=== PATIENT | female | born 1975 | race Caucasian/White ===

== ENCOUNTER 2025-01-24 19:56 | Emergency (ER) | payer OTHER, SELFPAY ==
--- OUTSIDE RECORDS SUMMARY | 2024-01-11 09:30 | XMS_ITS ---
Author Organization [facility] Address [address] [place] [address] Care Team Providers Care Environmental Science Program Director Name Role Phone Litzy Obrien Unavailable [phone] REASON FOR VISIT 6m Encounters Encounter Location Date Provider Diagnosis [facility] [address] [facility] [address] [place] [address] 01/11/2024 Litzy Obrien Plan Of Treatment No Information Progress Notes * Rosy PENNYDOB: [birth year] (49 yo F)Acc No.[id number]:01/11/2024 Progress Notes Patient: Rosy GILES Provider: Rae Obrien MD :1975 A ge:48 Y S ex:Female Date:01/11/2024 Address:[address] [place], [place] [id number] Subjective: * Chief Complaints: * 1 . 6m. * Medical History: Objective: * Vitals: Assessment: Plan: * Treatment: * Billing Information: * Visit Code: * Procedure Codes: * The named appointment provid er may or may not be the originator of this progress note, and it is not deemed complete until electronically signed by the appointment provider. Sign off status: Pending * Provider: Rae Obrien MD Date: 01/11/2024 Generated for Printi ng/Faradahg/eTransmitting on: 01/24/2025 08:07 PM CDT
[2025-01-24 19:59] VITALS: BP 123/88; PULSE 89; RESP 18; TEMP 36.6; O2SAT 97; BMI 40.7
--- NOTE | 2025-01-24 20:02 | ECG_ITS ---
[facility]24 Pat Name: Rosy Hoffman Department: Room: Gender: Female Ski Molder: : 1975 Requested By: Ivonne Clarke Order Number: [id number] Reading MD: Measurements Intervals Bertrand Rate: 85 P: 26 TX: 161 QRS: 19 QRSD: 89 T: 11 QT: 379 QTc: 452 Interpretive Statements SINUS RHYTHM No previous ECG available for comparison [email or web address]
--- OUTSIDE RECORDS SUMMARY | 2025-01-24 20:08 | XMS_ITS | Clinical Summary ---
Author Organization [facility] Address [address] [place] [address] Care Team Providers Care Wellness Instructor Name Role Phone Douglas Guadarrama MD Unavailable [phone] Social History Tobacco Use Types Packs/Day Years Used Date Smoking Tobacco: Never Assessed Comments Unknown Sex and Gender Information Value Date Recorded Sex Assigned at Not on file Legal Sex Female 10:41 AM CDT Gender Identity Not on file Sexual Orientation Not on file Plan of Treatment Health Maintenance Due Date Last Done Comments COLONOSCOPY 1976 CT Colonography 1975 Colorectal Cancer Screening 1975 FIT DNA 1975 FIT 1975 Hepatitis C Screening 1975 Mammogram 1975 SIGMOIDOSCOPY 1975 Anxiety Screening 1984 HIV Screening 1991 Depression Screening 1994 Hepatitis B Vaccine (1 of 3 - 19+ 3-dose series) 1995 TDAP/DTaP/TD Vaccines (1 - Tdap) 1995 Pap Smear 1997 Cervical Cancer Screening (30-65) 2006 HPV/Cotest 2006 Lipid Panel 2016 COVID-19 Vaccine ( - 2023-2 5 season) 2024 Influenza Series (#1) 2025 Meningococcal B Vaccine Aged Out No l onger eligible based on patient's age to complete this topic Pneumococcal Vaccine 0-50 years Aged Out No longer eligible based on patient's age to complete this topic Insurance [place]PCP REFERRAL REQ Care Teams Wellness Instructor Relationship Specialty Start Date End Date Douglas Guadarrama MD [address] [place] [address] [address] [place] [address] PCP - Medicaid 04/13/18
--- OUTSIDE RECORDS SUMMARY | 2025-01-24 20:08 | XMS_ITS | Encounter Summary ---
Author Organization [facility] Address [address] [place] [address] Care Team Providers Care Senior Research Fellow Name Role Phone Douglas Guadarrama MD Unavailable [phone] Encounter Details Date Type Department Care Team ([facility] st Contact Info) Description 03/15/2018 Outside Records [facility] [address] [facility] [place] [address] Interface, Provider Social History Tobacco Use Types Packs/Day Years Used Date Smoking Tobacco: Never Assessed Comments Unknown Sex and Gender Information Value Date Recorded Sex Assigned at Not on file Legal Sex Female 10:41 AM CDT Gender Identity Not on file Sexual Orientation Not on file documented as of this encounter Plan of Treatment Not on file documented as of this encounter Visit Diagnoses Not on filedocumented in this encounter Care Teams Senior Research Fellow Relationship Specialty Start Date End Date Douglas [facility]arrama [facility] [address] [place] [address] PCP - Medicaid 04/13/18 documented as of this encounter
--- OUTSIDE RECORDS SUMMARY | 2025-01-24 20:08 | XMS_ITS | Patient Health Record ---
Author Organization [facility] Address [address] [place] [address] Care Team Providers Care Legal Administrative Secretary Name Role Phone Litzy Obrien Unavailable [phone] Allergies No Known Allergies Reason For Referral No Information Medications Medication SIG (Take, Route, Frequency, Duration) Notes Start Date End Date Status Lyrica 150 mg 1 cap(s) orally 3 times daily; Duration: 90 days Hold medication in case of drowsiness 10/27/2023 Active rosuvastatin 20 mg 1 tab(s) orally once a day Active loratadine 5 mg 1 tab(s) orally once a day Active pregabalin 150 mg 1 cap(s) orally 3 times a day; Duration: 90 days 05/01/2024 Active omeprazole 20 mg 1 cap(s) orally once a day Active Pennsaid 2% as directed applied topically 2 times a day Active D3 2000 50 mcg 1 cap(s) orally once a day; Duration: 90 days 04/03/2024 Active predniSONE 5 mg 1 tab(s) orally 1 tablet after each meal for 2 weeks; Duration: 14 days Bridge treatment for 2 weeks then call office to rate response 04/03/2024 Active Doxepin Hydrochloride 25 mg 1 cap(s) orally 1 tablet 1 hour before bedtime; Duration: 90 days Call office in 1 month to rate response/tolerance 04/03/2024 Active Aveeno Anti-Itch 3%-1% 1 camden applied topically 3 times a day; Duration: 30 days Active DULoxetine 60 mg 1 cap(s) orally once a day in the morning; Duration: 90 days Active Social History Tobacco Use: Social History Observation Description Date Details (start date - stop date) Former Smoker NA - NA Tobacco Use: Question Answer Notes Smoking Status former smoker Problems Problem Type SNOMED Code ICD Code Onset Dates Problem Status W/U Status Risk Notes Problem Fibromyalgia syndrome (M79.7) Active confirmed Vital Signs Heart Rate 86 /min 04/03/2024 Temperature 98.1 degrees Fahrenheit 04/03/2024 Blood pressure diastolic 86 mm Hg 04/03/2024 Height 63 in 04/03/2024 Blood pressure systolic 107 mm Hg 04/03/2024 Weight 215 lbs 04/03/2024 BMI 38.08 kg/m2 04/03/2024 Encounters Encounter Location Date Provider Diagnosis [facility] [address] [place] [address] 04/03/2024 Litzy Valenciar Fibromyalgia syndrom e M79.7 [facility] [address] [place] [address] 10/01/2024 Litzy Valenciar [facility] [address] [place] [address] 04/30/2024 Litzy Valenciar Fibromyalgia syndrom e M79.7 [facility] [address] [place] [address] 05/02/2024 Litzy Obrien Assessments Encounter Date Diagnosis (ICD Code) Assessment Notes Treatment Notes Treatment Clinical Notes Section Notes 04/03/2024 Fibromyalgia syndrome (ICD-10 - M79.7) Due to the fair response to intolerance to Cymbalta and Lyrica as a will be refilled at same current dose of 60 mg of duloxetine in the morning and 150 mg 3 times daily for pregabalin. For his nonrestorative sleep I am going to add doxepin 25 mg 1 hour before bedtime for 1 months and patient will call office to rate response so dose can be adjusted. Patient will discontinue Lunesta due to nightmares. Due to the reported pain and swelling in both hands I am going to try pretreatment prednisone at 5 mg after each meal for 2 weeks then patient will call office to rate response. Aquatic aerobics 3 sessions per week. Vitamin D3 2000 unit every day. 04/30/2024 Fibromyalgia syndrome (ICD-10 - M79.7) Plan Of Treatment No Information Insurance Providers Payer Name Payer Address Payer Phone Subscriber Number Group Number Insured Name Patient Relationship to Insured Coverage Start Date Coverage End Date [address] [place], [place] [phone] [id number] Rosy Hoffman Self - patient is the insured 3 Medical (General) History Medical History History ICD Code gall bladder removed partial hysterectomy hand surgery elbow surgery
--- OUTSIDE RECORDS SUMMARY | 2025-01-24 20:08 | XMS_ITS | Encounter Summary ---
Author Organization [facility] Address [address] [facility] [facility] [place] [address] Care Team Providers Care Supervisor Tubing Name Role Phone Douglas Guadarrama MD Unavailable [phone] Encounter Details Date Type Department Care Team ([facility] st Contact Info) Description 03/15/2018 Outside Records [facility] [address] [facility] [place] [address] Interface, Provider Social History Tobacco Use Types [...] on filedocumented in this encounter Care Teams Supervisor Tubing Relationship Specialty Start Date End Date Douglas Guadarrama MD [facility] [address] [place] [address] PCP - Medicaid 04/13/18 documented as of this encounter
--- OUTSIDE RECORDS SUMMARY | 2025-01-24 20:08 | XMS_ITS | Encounter Summary ---
Author Organization [facility] Address [address] [place] [address] Care Team Providers Care Pilot Boat Operator Name Role Phone Douglas Guadarrama MD Unavailable [phone] Encounter Details Date Type Department Care Team ([facility] st Contact Info) Description 03/15/2018 Outside Records [facility] [address] [facility] [place] [address] Interface, Provider Social History Tobacco Use Types [...] on filedocumented in this encounter Care Teams Pilot Boat Operator Relationship Specialty Start Date End Date Douglas Guadarrama MD [facility] [address] [place] [address] PCP - Medicaid 04/13/18 documented as of this encounter
--- OUTSIDE RECORDS SUMMARY | 2025-01-24 20:08 | XMS_ITS | Encounter Summary ---
Author Organization [facility] Address [address] [place] [address] Care Team Providers Care Mechanical Product Engineer Name Role Phone Douglas Guadarrama MD Unavailable [phone] Encounter Details Date Type Department Care Team ([facility] st Contact Info) Description 03/15/2018 Outside Records [facility] [address] [facility] [place] [address] Interface, Provider Social History Tobacco Use Types [...] on filedocumented in this encounter Care Teams Mechanical Product Engineer Relationship Specialty Start Date End Date Douglas [facility]arrama [facility] [address] [place] [address] PCP - Medicaid 04/13/18 documented as of this encounter
--- OUTSIDE RECORDS SUMMARY | 2025-01-24 20:08 | XMS_ITS | Encounter Summary ---
Author Organization [facility] Address [address] [facility] [place] [address] Care Team Providers Care Wedding Florist Name Role Phone Douglas Guadarrama MD Unavailable [phone] Encounter Details Date Type Department Care Team ([facility] st Contact Info) Description 03/15/2018 Outside Records [facility] [address] [facility] [place] [address] Interface, Provider Social History Tobacco Use Types [...] on filedocumented in this encounter Care Teams Wedding Florist Relationship Specialty Start Date End Date Douglas Guadarrama MD [facility] [address] [place] [address] PCP - Medicaid 04/13/18 documented as of this encounter
--- OUTSIDE RECORDS SUMMARY | 2025-01-24 20:08 | XMS_ITS | Encounter Summary ---
Author Organization [facility] Address [address] [place] [address] Care Team Providers Care Learning Solutions Specialist Name Role Phone Douglas Guadarrama MD Unavailable [phone] Encounter Details Date Type Department Care Team ([facility] st Contact Info) Description 03/15/2018 Outside Records [facility] [address] [facility] [place] [address] Interface, Provider Social History Tobacco Use Types [...] on filedocumented in this encounter Care Teams Learning Solutions Specialist Relationship Specialty Start Date End Date Douglas [facility]arrama [facility] [address] [place] [address] PCP - Medicaid 04/13/18 documented as of this encounter
--- OUTSIDE RECORDS SUMMARY | 2025-01-24 20:08 | XMS_ITS | Patient Health Record ---
Author Organization [facility] Address [address] [place] [address] Care Team Providers Care Table Games Floor Supervisor Name Role Phone Benjy Juarez DO Primary Care Provider Unavailabl e Arthur Marshall Unavailable [phone] AR[address] [place] Unavailable Unavailable Allergies No Known Allergies Reason For Referral No Information Medications Medication SIG (Take, Route, Frequency, Duration) Notes Start Date End Date Status Pregabalin 75 MG 1 capsule Orally Thr ee times a day Active Citalopram Hydrobromide 20 MG 1 tablet Orally Once a day Active Fluticasone Propionate 50 MCG/ACT 1 spray in each nostril Nasally Once a day Active Rosuvastatin Calcium 10 MG 1 tablet Oral ly Once a day Active tiZANidine HCl 4 MG Take 1 tablet by porsha th three times daily as needed for 30 Active Meloxicam 15 MG Take 1 tablet by porsha th once daily for 30 Active Immunizations Vaccine Route Administration Date Status Comme nts COVID-19 Vaccine (Moderna) Dose #1 Unknown 03/06/2021 A dministered COVID-19 Vaccine (Moderna) Dose #2 Unknown 04/16/2021 A dministered Influenza (whole), CPT 24102 Inactive Unknown 08/08/2017 Administered Influenza (whole), CPT 21718 Inactive Unknown 08/08/2018 Administered Social History Tobacco Use: Social History Observation Description Date Details (start date - stop date) Never Smoker NA - NA xTobacco Use/Smoking Question Answer Notes Are you a nonsmoker PHQ-9 Question Answer Notes Little interest or pleasure in doing things More than half the days Feeling down, depressed, or hopeless Several day s Trouble falling or staying asleep, or sleeping t oo much Nearly every day Feeling tired or having little energy Nearly fatuma ry day Poor appetite or overeating More than half the d ays Feeling bad about yourself, or that you are a failure, or have let yourself or your family down Nearly every day Trouble concentrating on thi ngs, such as reading the newspaper or watching television Not at all Moving or speaking so slowly that other people could have noticed. Or the opposite ? being so fidgety or restless that you have been moving around a lot more than usual Not at all Thoughts that you would be b sriram off , or of hurting yourself in some way Not at all Total Score 14 Interpretation Moderate Depression Problems Problem Type SNOMED Code ICD Code Onset Dates Problem Status W/U Status Risk Notes Problem [id number] Decreased visual acuity (H54.7) Active confirmed Plan Of Treatment Pending Test Test Name Order Date MRI Lumbar Spine w/o [id number] 10/29/19 22 Insurance Providers Payer Name Payer Address Payer Phone Subscriber Number Group Number Insured Name Patient Relationship to Insured Coverage Start Date Coverage End Date Mina [address] [facility] [place] [address] [id number] Rosy Hoffman Self - patient is the insured 2 [employer] - Work Comp [id number] [address] [id number] Rosy Hoffman Self - patient is the insured Medical (General) History Medical History History ICD Code Problem:Anxiety (finding) , Status :: Ac tive Problem:Depressive disorder (disorder) , Status :: Active Problem:Hip pain (finding) , Status :: A ctive Problem:Microcytic anemia (disorder) , S tatus :: Active Problem:Mitral valve disorder (disorder) , Status :: Active Problem:Mixed hyperlipidemia (disorder) , Status :: Active Problem:Obesity (disorder) , Status :: A ctive Problem:Tobacco user (finding) , Status :: Active Problem:Anemia due to blood loss (disord er) , Status :: Active Problem:Anxiety (finding) , Status :: Ac tive Problem:Chronic depression (disorder) , Status :: Active Problem:Fibromyalgia (disorder) , Status :: Active Problem:Malabsorption - iron (disorder) , Status :: Active Problem:Obesity (disorder) , Status :: A ctive Problem:Tobacco user (finding) , Status :: Active Surgical History Surgery Date(Month/Year) hands and elbows 2020 hysterectomy 2020 gallbladder 2010 c section x 4 Hospitalization History Reason Date(Month/Year) see surgical hx
--- NOTE | 2025-01-24 20:24 | XRR_ITS ---
PROCEDURE INFORMATION: Exam: XR Chest Exam date and time: 01/24/2025 8:26 PM Age: 49 years old Clinical indication: Pain; Chest pressure; Additional info: Chest pain TECHNIQUE: Imaging protocol: Radiologic exam of the chest. Views: 1 view. COMPARISON: No relevant prior studies available. FINDINGS: Lungs: Unremarkable. No consolidation. Pleural spaces: Unremarkable. No pleural effusion. No pneumothorax. Heart/Mediastinum: Unremarkable. No cardiomegaly. Bones/joints: Unremarkable. XR/XR chest 1V portable 85029 IMPRESSION: No acute findings.
--- NOTE | 2025-01-24 20:43 | ED_ITS ---
HPI - Chest Pain 2 General: Chief Complaint: Chest Pain Stated Complaint: LUDIN baron weeks SOB tired Time Seen by Provider: 01/24/25 20:11 History of Present Illness: This patient is a 49 year old presenting with chest pain that has been ongoing for about 3 weeks. She says that initially it would be a sharp pain that was followed by feeling like her heart was racing. Then about a week ago the heart racing sensation became more constant. She was her PCP yesterday and was told to come to the ED but decided not to come then. Today she has not had the heart racing sensation but has had constant sharp chest pain. She has had some episodes of sweating and feeling flushed - hard to say if they occur in association with the chest pain and racing heart or not. She denies any pattern to her symptoms - they occur at rest and with activity, with sitting or laying, and no association with eating. She reports a history of two leaky valves after the of her daughter in 2000, and was also told at that time that she had an enlarged heart. 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 She is on medication and is compliant. She recently started a new injection medication for the eczema. She denies family history of CAD and is not a smoker. She did smoke for a short time many years ago. No alcohol or drug use. Related Data Allergies Allergy/AdvReac Type Severity Reaction Status Date / Time No Known Allergies Allergy Verified 01/24/25 20:07 Physical Exam 2 Const: COMMON NORMALS: no acute distress, patient oriented x3, no limitations and alert GENERAL APPEARANCE: cooperative and comfortable HENMT: HEAD & SCALP: normal to inspection FACE & SINUS: normal facial exam Eye: GENERAL EYE: appearance normal, both eyes and all related structures Neck/C-Spine: COMMON NORMALS: supple, no meningeal signs and no JVD Chest: COMMONS NORMALS: normal inspection of the chest Resp: COMMON NORMALS: normal respiratory effort, No use of accessory muscles and clear to auscultation bilaterally AUSCULTATION: clear to auscultation bilaterally Cardio: COMMON NORMALS: no JVD, regular rate, regular rhythm and No murmurs present (Cardio) RATE: regular rate RHYTHM: regular rhythm GI: COMMON NORMALS: Normal to inspection, nondistended, normoactive bowel sounds present, Soft to palpation and non-tender INSPECTION: Yes normal to inspection AUSCULTATION: Yes normoactive bowel sounds PALPATION: Yes Soft to palpation Back/Pelvis: COMMON NORMALS: thoracic and lumbar spine normal to inspection Extremity: COMMON NORMALS: normal to inspection Neuro: COMMON NORMALS: patient oriented x3, moves all extremities, no focal motor deficits and no sensory deficits noted SENSORIUM/ORIENTATION: Yes alert MENINGEAL SIGNS: Yes no meningeal signs Psych: COMMON NORMALS: mental status grossly normal, cooperative and normal affect Skin: COMMON NORMALS: no rashes or lesions noted and turgor normal GENERAL SKIN EXAM: no rashes or lesions noted and turgor normal Course 2 Vital Signs: Vital signs: Vital Signs Temperature 97.9 F 01/24/25 19:59 Pulse Rate 89 01/24/25 19:59 Respiratory Rate 18 01/24/25 19:59 Blood Pressure 123/88 01/24/25 19:59 Pulse Oximetry 97 01/24/25 19:59 Oxygen Delivery Me thod Room Air 01/24/25 19:59 MDM - Chest Pain Medical Decision Making Patient with atypical sounding chest pain - but also episodes of heart racing. She had NSR on the monitor during her ED stay. She was told in the past that she had an enlarged heart and leaky valves - post - unclear significance. She is on thyroid replacement and did just start a new medicine for her eczema. Labs and CXR pending. EKG is normal. Initial troponin is negative and as she has had constant pain today - I don't think it is necessary to obtain a repeat at 2 hours. Unclear what is causing the symptoms - but she has a low heart score and is safe for an outpatient work up. She will need to follow up with her PCP again and discuss further evaluation such as a stress test or cardiology referral. She should discuss the new eczema medication with her PCP/bullard machine operator before using it again as she wonders if it caused these episodes. Her bullard machine operator is at [facility] in [place]. Lab Data 01/24/25 20:35 01/24/25 20:35 Radiology Impressions Chest X-Ray 01/24/25 20:24 IMPRESSION: No acute findings. Laboratory Results WBC 6.85 10^3/uL (3.29-11.43) 01/24/25 20:35 RBC 3.86 10^6/uL (3.85-5.65) 01/24/25 20:35 Hgb 12.50 g/dL (11.27-16.99) 01/24/25 20:35 Hct 37.7 % (36-47) 01/24/25 20:35 MCV 97.7 fl (85-98) 01/24/25 20:35 MCH 32.4 pg (27-33) 01/24/25 20: MCHC 33.2 g/dL (30-55) 01/24/25 20:35 RDW 13.6 % (12.1-15.1) 01/24/25 20: Plt Count 273 10^3/cmm (157-399) 01/24/25 20:35 MPV 10.3 fL (7.4-10.4) 01/24/25 20:35 Neut % (Auto) 65.5 % 01/24/25 20:35 Lymph % (Auto) 28.3 % 01/24/25 20:35 [place] % (Auto) 4.1 % 01/24/25 20:35 Eos % (Auto) 1.3 % 01/24/25 20:35 Baso % (Auto) 0.4 % 01/24/25 20:35 Neut # (Auto) 4.48 10^3/uL (1.8-7.7) 01/24/25 20:35 Lymph # (Auto) 1.9 10^3/uL (0.8-4.8) 01/24/25 20:35 [place] # (Auto) 0.3 10^3/uL (0.2-0.9) 01/24/25 20:35 Eos # (Auto) 0.1 10^3/uL (0.0-0.8) 01/24/25 20:35 Baso # (Auto) 0.0 10^3/uL (0.0-0.1) 01/24/25 20:35 Nucleated RBC % (auto) 0 % 01/24/25 20:35 Nucleated RBCs # 0.0 /100WBC 01/24/25 20:35 Sodium 138 mmol/L (136-145) 01/24/25 20:35 Potassium 3.5 mmol/L (3.5-5.1) 01/24/25 20:35 Chloride 101 mmol/L (98-107) 01/24/25 20:35 Carbon Dioxide 21 mmol/L (22-29) L 01/24/25 20:35 Anion Gap 19.5 (5-19) H 01/24/25 20:35 BUN 7 mg/dL (6-20) 01/24/25 20:35 Creatinine 0.9 mg/dL (0.5-0.9) 01/24/25 20:35 GFR Calculation 66.8 mL/min (90-130) L 01/24/25 20:35 Glucose 143 mg/dL (65-115) H 01/24/25 20:35 Calculated Osmolality 286 mOsm/kg (285-295) 01/24/25 20:35 Calcium 9.4 mg/dL (8.5-10.5) 01/24/25 20:35 Total Bilirubin 1.1 mg/dL (0.15-1.2) 01/24/25 20:35 AST 25 U/L (0-32) 01/24/25 20:35 ALT 22 U/L (0-33) 01/24/25 20:35 Alkaline Phosphatase 106 U/L (35-105) H 01/24/25 20:35 Troponin T Baseline < 6 ng/L (0-10) 01/24/25 20:35 NT-Pro-B Natriuret Pep < 36 pg/mL (0-125) 01/24/25 20:35 Total Protein 7.2 g/dL (6.6-8.7) 01/24/25 20:35 Albumin 4.2 g/dL (3.5-5.2) 01/24/25 20:35 Globulin 3.0 g/dL (1.3-4.6) 01/24/25 20:35 Lipase 16 U/L (13-60) 01/24/25 20:35 TSH 2.47 uIU/mL (0.27-4.20) 01/24/25 20:35 Free T4 0.67 ng/dL (0.82-1.77) L 01/24/25 20:35 Free T3 2.6 PG/ML (2.0-4.4) 01/24/25 20:35 All radiology interpretation(s) finalized by discharge Clincial Decision Support The following clinical decision support tools were used to aid in care of the patient HEART Score -> History: Slightly Suspicous, EKG: Normal, Age: 45-64 yrs, Risk Factors: 1 or 2 Risk Factors, Troponin: Baseline Trop <16 ng/L. Resulting HEART Score: 2. Discharge Plan Discharge Patient Disposition: Home Clinical Impression: Atypical chest pain, Palpitations with regular cardiac rhythm Condition: Stable Discharge Orders: Discharge ED (Routine); Ordered 01/24/25 Ordered By: Ivonne Longo Referrals: Yanci Pappas APN [Primary Care Provider, Unknown] Patient Instructions: Opioid Safety, Pain Management, Patient Portal & [place] Instructions Activity Restrictions/Additional Instructions: Follow up with your PCP to discuss further evaluation of your symptoms. There is no evidence of heart damage at this time, but other testing may be needed as an outpatient. Also discuss the new eczema medication with your PCP prior to using it again, due to the concern that the symptoms could be a side effect of that medication. Print Language: Amharic Coding Level of Care Code ED Modeling And Simulation Analyst for Beth Pratt
[2025-01-24 20:44] LABS: Hematocrit 37.7 % (36-47); Hemoglobin 12.50 g/dL (11.27-16.99); Mean Corpuscular HGB Conc 33.2 g/dL (30-55); Mean Corpuscular Hemoglobin 32.4 pg (27-33); Mean Corpuscular Volume 97.7 fl (85-98); Nucleated Red Blood Cells % 0 %; Platelet Count 273 10^3/cmm (157-399); Red Blood Count 3.86 10^6/uL (3.85-5.65); White Blood Count 6.85 10^3/uL (3.29-11.43)
[2025-01-24 21:00] LABS: Troponin(5th) Baseline < 6 ng/L (0-10)
[2025-01-24 21:27] LABS: Alanine Aminotransferase 22 U/L (0-33); Albumin Level 4.2 g/dL (3.5-5.2); Alkaline Phosphatase 106 U/L (35-105); Anion Gap 19.5 (5-19); Aspartate Amino Transferase 25 U/L (0-32); Blood Urea Nitrogen 7 mg/dL (6-20); Calcium 9.4 mg/dL (8.5-10.5); Carbon Dioxide 21 mmol/L (22-29); Chloride 101 mmol/L (98-107); Creatinine Clr Calc Pharmacy 88.3013; Free T4 Free Thyroxine 0.67 ng/dL (0.82-1.77); Globulin 3.0 g/dL (1.3-4.6); Glucose 143 mg/dL (65-115); Lipase 16 U/L (13-60); NT Pro B Type Natriuretic Pept < 36 pg/mL (0-125); Osmolality Calculated 286 mOsm/kg (285-295); Potassium 3.5 mmol/L (3.5-5.1); Sodium 138 mmol/L (136-145); Thyroid Stimulating Hormone 2.47 uIU/mL (0.27-4.20); Total Protein 7.2 g/dL (6.6-8.7)
[2025-01-24 22:33] VITALS: BP 125/68; PULSE 80; O2SAT 96
== END 2025-01-24 22:34 | disposition home or self-care (01) ==
PROVIDERS: Emergency Provider Emergency Medicine; PCP Nurse Practitioner Family
DX: R07.89 Other chest pain (principal); R00.2 Palpitations
CPT/HCPCS: 71045; 80053; 83690; 83880; 84439; 84443; 84481; 84484; 85025; 93005; 93010; 99285

== ENCOUNTER 2025-04-16 09:44 | Day surgery (SDC) | payer OTHER, MEDICAID, SELFPAY ==
--- OUTSIDE RECORDS SUMMARY | 2024-01-11 09:30 | XMS_ITS ---
Author Organization [facility] Address [address] [place] [address] Care Team Providers Care Medical Staff Physician Name Role Phone Litzy Obrien Unavailable [phone] REASON FOR VISIT 6m Encounters Encounter Location Date Provider Diagnosis [facility] [address] [facility] [address] [place] [address] 01/11/2024 Litzy Obrien Plan Of Treatment No Information Progress Notes * Rosy PENNYDOB: [birth year] (49 yo F)Acc No.[id number]:01/11/2024 Progress Notes Patient: Rosy GILES Provider: Rae Obrien MD :1975 A ge:48 Y S ex:Female Date:01/11/2024 Address:[address] [place], [place] [id number] Subjective: * Chief Complaints: * 1 . [...] Rae Obrien MD Date: 01/11/2024 Generated for Deloresi ng/Faradhag/eTransmitting on: 04/16/2025 09:54 AM CDT
[2025-04-16] VITALS (13 sets, daily range): BP systolic 111–139; BP diastolic 70–99; PULSE 77–98; RESP 16–20; TEMP 36.2–36.8; O2SAT 92–99; BMI 38.9
--- NOTE | 2025-04-16 09:49 | XR_ITS ---
WS: [id number] Exam: XR ankle LT min 3V* [id number] Date/Time of Exam: 04/16/2025 9:51 AM Reason For Exam: trauma Trimalleolar fracture of the LEFT ankle noted with anterior dislocation of the tibia upon the talar dome. There is some displacement of the medial malleolar fracture fragment as well as a posterior shelf fracture fragment. There is angulation and some displacement of the distal fibular fracture. Soft tissue swelling. XR/XR ankle LT min 3V* [id number] IMPRESSION: 1. Displaced trimalleolar fracture dislocation of the ankle as detailed above.
--- NOTE | 2025-04-16 09:50 | W.ED.EXTPRO ---
HPI - Extremity Problem General: Chief complaint: Extremity Injury, Lower Stated complaint: fall - left ankle deformity Time Seen by Provider: 04/16/25 09:45 History of Present Illness: 49-year-old female presents emergency room with complaints of falling. She was going down some steps in her home she fell about 3-4 steps. She has pain and reported deformity in the left ankle she arrives with a malleable splint in place she was given 100 mcg of fentanyl and route. She denied any other injuries no pain in her hip knees no pain in any other extremities she did not strike her head no neck pain. She is not on any anticoagulants. Associated symptoms: Deny chest pain, fever(s) or rash Related Data Previous Rx's ?Medication ?Instructions ?Recorded aspirin 81 mg capsule 81 mg PO DAILY 6 weeks #45 caps 04/16/25 hydrocodone 10 mg-acetaminophen 1 tab PO Q6H PRN pain 7 days #28 04/16/25 325 mg tablet tabs Allergies Allergy/AdvReac Type Severity Reaction Status Date / Time No Known Allergies Allergy Verified 01/24/25 20:07 Review of Systems Const: Denies: fever(s) or chills Card: Denies: chest pain Resp: Denies: dyspnea GI: Denies: abdominal pain : Denies: dysuria, urinary frequency or urinary urgency Musc: Denies: neck pain or back pain Skin/Breast: Denies: rash Physical Exam Const: GENERAL APPEARANCE: cooperative ORIENTATION/CONSCIOUSNESS: Yes awake, Yes oriented to person, Yes oriented to place and Yes oriented to time HENMT: COMMON NORMALS: normocephalic, atraumatic and hearing grossly normal bilaterally HEAD & SCALP: normocephalic and atraumatic Resp: COMMON NORMALS: normal respiratory effort, No retractions, No use of accessory muscles and clear to auscultation bilaterally AUSCULTATION: clear to auscultation bilaterally Cardio: COMMON NORMALS: regular rate, regular rhythm and No murmurs present (Cardio) RATE: regular rate RHYTHM: regular rhythm GI: COMMON NORMALS: Soft to palpation and No hepatosplenomegaly present AUSCULTATION: Yes normoactive bowel sounds PALPATION: Yes Soft to palpation, No Tenderness to palpation present (GI), No Guarding due to palpation present (GI) and Yes No hepatosplenomegaly present Extremity: OTHER: Splint removed obvious deformity of the left ankle. Dorsalis pedis pulse palpable good capillary refill. Patient able to spontaneously move toes. Neuro: SENSORIUM/ORIENTATION: Yes oriented to person, Yes oriented to place and Yes oriented to time Skin: COMMON NORMALS: no rashes or lesions noted GENERAL SKIN EXAM: no rashes or lesions noted Procedures Orthopedic Fracture Reduction Fracture #1: Time Out Performed: Yes Side: left Fracture Reduction Location: other (Left ankle) Analgesia: procedural sedation Technique: direct manipulation Post Reduction X-rays Demonstrate: anatomical reduction Post-reduction neuro exam: intact Post-reduction vascular exam: intact Splint Applied: Yes Procedural Sedation Indication: fracture/dislocation reduction ASA Class: I Time of Last PO Intake: 18:00 Preparation: color television console monitor applied, pulse oximeter, supplemental O2 applied, suction/airway equipment at bedside and IV secured IV Etomidate dose (mg): 5 Patient Tolerated Procedure: well Complications: none Course Vital Signs: Vital signs: Vital Signs Temperature 97.2 F L 04/16/25 14:08 Pulse Rate 94 04/16/25 14:08 Respiratory Rate 20 H 04/16/25 14:08 Blood Pressure 123/82 04/16/25 14:08 Pulse Oximetry 95 04/16/25 14:08 Oxygen Delivery Me thod Room Air 04/16/25 14:08 Oxygen Flow Rate 6 04/16/25 13:42 MDM - Extremity (Nontraumatic) Medical Decision Making Procedural sedation was easily able to reduce the fracture however it spontaneously dislocated again before we could apply the splint. Was reduced a second time and held in position while splint was applied confirmed with x-ray. Neurovascularly intact after reduction. Consulted podiatry. Given the ease of just slips in and out of reduction they recommend surgical intervention today. Patient taken directly to the OR for ORIF. Discussed with Dr. Cary. Also consulted with Dr. Bobo. Medical Records I reviewed the patient's medical records. Lab Data I reviewed the patient's lab results. Radiology Impressions Ankle X-Ray 04/16/25 10:45 IMPRESSION: 1. Satisfactory reduction of previously noted talotibial dislocation. Trimalleolar fractures of the ankle all show improved alignment when compared to the latest exam. Laboratory Results POC Glucose 129 mg/dL (70-110) H 04/16/25 11:40 All radiology interpretation(s) finalized by discharge Discharge Plan Discharge Patient Disposition: Admitted As Inpatient Clinical Impression: Syndesmotic disruption of left ankle, initial encounter, Closed trimalleolar fracture of left ankle, initial encounter, Dislocation of left ankle joint, initial encounter Condition: Stable Discharge Diet: Advance as tolerated Discharge Activity: Use walker/crutches as instructed Coding Level of Care Code ED Bandage Wrapping Machine Operator for Beth Pratt
--- OUTSIDE RECORDS SUMMARY | 2025-04-16 09:54 | XMS_ITS | Clinical Summary ---
Author Organization [facility] Address [address] [place] [address] Phone Care Team Providers Care Locomotive Observer Name Role Phone Unavailable Primary Care Provider Unavailabl e Allergies No known active allergies Medications DULoxetine (CYMBALTA) [address] capsule Take 1 capsule every day by oral route for 90 days. 5 Active EPINEPHrine (EPIPEN) 0.3 mg/0.3 mL injection auto-injector INJECT CONTENTS OF 1 PEN NEEDED FOR ALLERGIC REACTION Active loratadine (CLARITIN) 10 mg tablet Take 1 tablet every day by oral route for 90 days, for Allergies. 5 Active rosuvastatin (CRESTOR) 20 MG tablet TAKE 1 TABLET BY MOUTH ONCE DAILY AT BEDTIME FOR HIGH CHOLESTEROL 5 Active pregabalin (LYRICA) 150 MG capsule Take one capsule (150 mg total) by mouth in the morning and one capsule (150 mg total) at noon and one capsule (150 mg total) before bedtime. 5 Active tiZANidine (ZANAFLEX) 2 MG tablet SMARTSI Tablet(s) By Mouth Every 8 Hours 5 Active Active Problems Problem Noted Date Diagnosed Date Abnormal auditory perception 12/29/2020 Sensorineural hearing loss (SNHL) of both ears 0 12/29/2020 Assessment & Plan (12/29/2020 3:04 PM CDT): Reviewed audiogram with patient Recommend she wear ear plugs around loud nose rtc prn flonase secondary to nasal congestion Nasal congestion 12/29/2020 Iron deficiency anemia 08/25/2020 Encounters Date Type Department Care Team Description 02/12/2025 1:30 PM CDT Office Visit [facility] [address] [place], [place] [id number] Dominic Ochoa MD Iron deficiency anemia, unspecified iron deficiency anemia type (Primary Dx) Discharge Disposition: Home 02/12/2025 Travel 02/04/2025 Orders Only [facility] [address] [place], [place] [id number] Elisa Cha RN Iron deficiency anemia, unspecified iron deficiency anemia type (Primary Dx) 01/15/2025 Travel from Last 3 Months Immunizations Immunization Administration Dates Next Due DTP 03/22/1979, 8,05/25/1977,1976,1976 Hep B Adult 04/03/2012 Influenza (Historical) 09/12/2018 Influenza Inj. MDCK Quadriva lent w/pres 08/22/2019 MMR 04/03/2012,12/15/1977 Poliovirus Trivalent Vaccine , Live (PO) 05/09/1985,03/22/1979,02/16/1978,1976,02/10/1977 Td (adult) 2 Lf tetanus toxo id (PF) Adsorbed 05/09/1985 Tdap 04/03/2012 Family History Medical History Relation Name Comments Hypertension Brother Brain cancer Maternal Aunt Pancreatic cancer Maternal Aunt Stroke Maternal Grandfather Stroke Maternal Grandmother Hypertension Mother Thyroid disease Mother Lupus Sister Relation Name Status Comments Brother Maternal Aunt Maternal Grandfather Maternal Grandmother Mother Sister Social History Tobacco Use Types Packs/Day Years Used Date Smoking Tobacco: Former E-Cigarette Smokeless Tobacco: Never Alcohol Use Standard Drinks/Week Comments No 0 (1 standard drink = 0.6 oz pur e alcohol) AUDIT-C Answer Date Recorded Frequency of Alcohol Consumption Never 09/12/2018 Average Number of Drinks Not on file 019 Frequency of Binge Drinking Never 08/25 Overall Financial Resource Strain (CARDIA) Answe r Date Recorded Difficulty of Paying Living Expenses Hard 09/12/2018 Hunger Vital Sign Answer Date Recorded Worried About Running Out of Food in the Last Ye ar Sometimes true 09/12/2018 Ran Out of Food in the Last Year Sometimes true 09/12/2018 PRAPARE - Transportation Answer Date Re corded Lack of Transportation (Medical) No 09/12/2018 Lack of Transportation (Non-Medical) No 09/12/2018 Sexually Active Control Partners Comments Never Comments Unknown Sex and Gender Information Value Date Recorded Sex Assigned at Female 11/10/2021 4:18 PM CDT Legal 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 Gender Identity Female 11/10/2021 4:18 PM CDT Sexual Orientation Straight 11/10/2021 4: 18 PM CDT Occupation Industry Job Start Date Job End Date good will Not on file Not on file Not on file Last Filed Vital Signs Vital Sign Reading Time Taken Comments Blood Pressure 119/81 02/12/2025 2:30 PM CDT Pulse 70 02/12/2025 2:30 PM CDT Temperature 36.1 C (96.9 F) 02/12/2025 2:30 PM CDT Respiratory Rate 14 02/12/2025 2:30 PM CDT Oxygen Saturation 96% 02/12/2025 2:30 PM CDT Inhaled Oxygen Concentration - - Weight 100 kg (220 lb 6 oz) 02/12/2025 2:30 PM C DT Height 160 cm (5' 3 ) 02/12/2025 2:30 PM CDT Body Mass Index 39.04 02/12/2025 2:30 PM CDT Plan of Treatment Health Maintenance Due Date Last Done Comments Colonoscopy Every 6 Months 1976 Colorectal Cancer Screening Annual FOBT/FIT Test 1976 Colorectal Cancer Screening Cologuard 1976 Colorectal Cancer Screening Flex Sigmoidoscopy 1976 Annual Depression Screening 1987 Hepatitis C Antibody Screen 1994 Cervical Cancer Screening 1997 Mammogram 2016 Colorectal CA Screen 10 Year Colonoscopy 2021 Colorectal Cancer Screening 2021 DTap/Tdap/Td Vaccines (7 - T d or Tdap) 04/03/2022 04/03/2012, 05/09/1985, 03/22/1979, Additional history exists COVID-19 Vaccine (2023-2 5 season) 2025 04/16/2021, 03/06/2021 Flu Vaccine (#1) 03/25/2025 04/02/2024, , 05/01/2021, Additional history exists Influenza Vaccine 03/25/2025 04/02/2024, , 05/01/2021, Additional history exists Annual Physical 08/31/2025 08/31/2024, 01/2025, 08/03/2023, Additional history exists Procedures Procedure Name Priority Date/Time Associated Diagnosis Comments RBC MORPHOLOGY After office visit 02/12/2025 2:19 PM CDT Iron deficiency anemia, unspecified iron deficiency anemia type CBC WITH DIFFERENTIAL Routine 02/12/2025 2:19 PM CDT Iron deficiency anemia, unspecified iron deficiency anemia type from Last 3 Months Results * RBC Morphology (02/12/2025 2:19 PM CDT) RBC Morphology See Comment 11:14 AM CDT [facility] Blood Venipuncture / Unknown 02/12/2025 2:19 PM CDT 02/12/2025 2:22 PM CDT Narrative [facility] - 03/08/2025 11:14 AM CDT SLIDE REVIEWED BY RM. Dominic Ochoa MD LAB BLOOD ORDERABLES Final Result Performing Organization Address City/State/[facility] Co de Phone Number [facility] [address] [place], [place] [address] [phone] * (ABNORMAL) CBC with differential (02/12/2025 2:19 PM CDT) WBC 5.9 5.0 - 10.0 K/uL 02/12/2025 2:35 PM CDT [facility] RBC 3.85(L) 4.10 - 5.40 M/uL 02/12/2025 2:35 PM CDT [facility] Hemoglobin 12.6 12.0 - 16.0 g/dL 02/12/2025 2:35 PM CDT [facility] Hematocrit 37.3 37.0 - 47.0 % 02/12/2025 2:35 PM CDT [facility] MCV 96.9 80.0 - 97.0 fL 02/12/2025 2:35 PM CDT [facility] MCH 32.7(H) 27.0 - 32.0 pg 02/12/2025 2:35 PM CDT [facility] MCHC 33.8 32.0 - 36.0 g/dL 02/12/2025 2:35 PM CDT [facility] RDW CV 13.3 11.5 - 14.5 % 02/12/2025 2:35 PM CDT [facility] Platelet 300 150 - 500 K/uL 02/12/2025 2:35 PM CDT [facility] MPV 10 7 - 10 fL 02/12/2025 2:35 PM CDT [facility] Absolute Neutrophil 3.6 2.5 - 7.5 K/uL 02/12/2025 2:35 PM CDT [facility] Absolute Lymphocyte 2.0 1.0 - 4.0 K/uL 02/12/2025 2:35 PM CDT [facility] Absolute Monocyte 0.23 0.05 - 0.60 K/uL 02/12/2025 2:35 PM CDT [facility] Absolute Eosinophil 0.08 0.05 - 0.50 K/uL 02/12/2025 2:35 PM CDT [facility] Absolute Basophil 0.02 0.00 - 0.10 K/uL 02/12/2025 2:35 PM CDT [facility] Absolute Immature Granulocytes 0.02(H) <=0.00 K/uL 02/12/2025 2:35 PM CDT [facility] Neutrophil percent 60.5 50.0 - 75.0 % 02/12/2025 2:35 PM CDT [facility] Lymphocyte percent 33.6 20.0 - 40.0 % 02/12/2025 2:35 PM CDT [facility] Monocyte percent 3.9 0.0 - 6.0 % 02/12/2025 2:35 PM CDT [facility] Eosinophil percent 1.4 0.0 - 6.0 % 02/12/2025 2:35 PM CDT [facility] Basophils Percent, Automated 0.3 0.0 - 1.0 % 02/12/2025 2:35 PM CDT [facility] Immature Granulocytes percent 0.30(H) % 02/12/2025 2:35 PM CDT [facility] Blood Venipuncture / Unknown 02/12/2025 2:19 PM CDT 02/12/2025 2:22 PM CDT Narrative [facility] - 02/12/2025 2:35 PM CDT SLIDE REVIEW TO FOLLOW. Dominic Ochoa MD LAB BLOOD ORDERABLES Final Result [facility] [address] [place] [address], [facility] [phone] from Last 3 Months Insurance [employer]
--- OUTSIDE RECORDS SUMMARY | 2025-04-16 09:55 | XMS_ITS | Patient Health Record ---
Author Organization [facility] Address [address] [place] [address] Care Team Providers Care Medical Field Representative Name Role Phone Benjy Juarez DO Primary Care Provider Unavailabl e Arthur Marshall Unavailable [phone] ARTHUR MARSHALL Unavailable Unavailable Allergies No Known Allergies Reason For Referral No Information Medications Medication SIG (Take, Route, Frequency, Duration) Notes Start Date End Date Status Pregabalin 75 MG Capsule 1 capsule Orall y Three times a day Active Citalopram Hydrobromide 20 MG Tablet 1 tablet Orally Once a day Active Fluticasone Propionate 50 MCG/ACT Suspension 1 spray in each nostril Nasally Once a day Active Rosuvastatin Calcium 10 MG Tablet 1 tablet Orally Once a day Active tiZANidine HCl 4 MG Tablet Take 1 tablet by mouth three times daily as needed; Duration: 30 Active Meloxicam 15 MG Tablet Take 1 tablet by mouth once daily; Duration: 30 Active Immunizations Vaccine Route Administration Date Status Comme nts Influenza (whole), CPT 07443 Inactive Unknown 08/08/2017 Administered Influenza (whole), CPT 82124 Inactive Unknown 08/08/2018 Administered COVID-19 Vaccine (Moderna) Dose #2 Unknown 04/16/2021 A dministered COVID-19 Vaccine (Moderna) Dose #1 Unknown 03/06/2021 A dministered Social History Tobacco Use: Social History Observation Description Date Details (start date - stop date) Never Smoker NA - NA Social History Depression Screening Social Info Question Answer Notes PHQ-9 Little interest or p royal in doing things More than half the [...] all Total Score 14 Interpretation Moderate Depression Comprehensive Health Assessm ent Social Info Question Answer Notes *Social Determinants of Health Has lack of transportation kept you from medical appointments, meetings, work or from getting things needed for daily living? No Recently, have you worried t hat your food would run out before you got money to buy more? No Tobacco Use: Social Info Question Answer Notes xTobacco Use/Smoking Are you a nonsmoker Problems Problem Type SNOMED Code ICD Code Onset Dates Problem Status W/U Status Risk Notes Problem Reduced visual acuity (71824526) Decreased visual acuity (H54.7) Active confirmed Plan Of Treatment Pending Test Test Name Order Date MRI Lumbar Spine w/o [id number] 10/29/19 22 Insurance Providers Payer Name Payer Address Payer Phone Subscriber Number Group Number Insured Name Patient Relationship to Insured Coverage Start Date Coverage End Date [address] [facility] [place] [address] [id number] Rosy Hoffman Self - patient is the insured 2 [employer] - Work Comp [id number] [facility] [address] [place] [address] [id number] Yasmin Rosy Self - patient is the insured Medical [...] Surgical History Surgery Date(Month/Year) hands and elbows 2019, 2020 hysterectomy 2020 gallbladder 2010 c section x 4 Hospitalization History Reason Date(Month/Year) see surgical hx
--- OUTSIDE RECORDS SUMMARY | 2025-04-16 09:55 | XMS_ITS | Patient Health Record ---
Author Organization [facility] Address [address] [place] [address] Care Team Providers Care Subject Scientific Research Name Role Phone Litzy Obrien Unavailable [phone] Allergies No Known Allergies Reason For Referral [...] Status W/U Status Risk Notes Problem Fibromyalgia (154118495) Fibromyalgia syndrome (M79.7) Active confirmed Encounters Encounter Location Date Provider Diagnosis [facility] [address] [facility] [address] [place] [address] 04/30/2024 Litzy Obrien Fibromyalgia syndrom e M79.7 [facility] [address] [facility] [address] [place] [address] 05/02/2024 Litzy Obrien [facility] [address] [facility] [address] [place] [address] 10/01/2024 Litzy Obrien Assessments Encounter Date Diagnosis (ICD Code) Assessment Notes Treatment Notes Treatment Clinical Notes Section Notes 04/30/2024 Fibromyalgia syndrome (ICD-10 - M79.7) Plan Of Treatment No Information Insurance Providers Payer Name Payer Address Payer Phone Subscriber Number Group Number Insured Name Patient Relationship to Insured Coverage Start Date Coverage End Date [facility] [address] [place], [place] [phone] [id number] Rosy Hoffman Self - patient is the insured 3 Medical (General) History Medical History History ICD Code gall bladder removed partial hysterectomy hand surgery elbow surgery
[2025-04-16] MEDS: morphine 4 mg/mL SDV 1 mL IVP (10:22)
--- NOTE | 2025-04-16 10:45 | XR_ITS ---
WS: [id number] Exam: XR ankle LT 2V [id number] Date/Time of Exam: 04/16/2025 10:42 AM Reason For Exam: POST REDUCTION Comparison made with the earlier study performed on the same day at 9:52 a.m. Previously noted talotibial dislocation has been reduced. Trimalleolar fractures all show improved position since initial radiographs. Soft tissue swelling about the ankle. XR/XR ankle LT 2V [id number] IMPRESSION: 1. Satisfactory reduction of previously noted talotibial dislocation. Trimalleo lar fractures of the ankle all show improved alignment when compared to the lat est exam.
[2025-04-16] MEDS: etomidate 2 mg/mL INJ SDV 10 mL 5 MG IVP (11:00)
--- NOTE | 2025-04-16 11:00 | PC.NURSE ---
etomidate wasted with Leti Gupta RN.
--- NOTE | 2025-04-16 11:19 | PM.CONSULT ---
Providers/Reason For Consult Consulting Physician/Specialty*: Emile Cary D.P.M./podiatry Reason for Consult*: Left trimalleolar fracture Primary Care Provider: Yanci Pappas APN History of Present Illness History of Present Illness Rosy Hoffman is a 49 year old female presents emergency room with complaints of falling. She was going down some steps in her home she fell about 3-4 steps. She has pain and reported deformity in the left ankle she arrives with a malleable splint in place she was given 100 mcg of fentanyl and route. She denies any concomitant injuries no pain in her hip knees no pain in any other extremities she did not strike her head no neck pain. She is not on any anticoagulants. Last ate dinner last night nothing for breakfast. Has been n.p.o. since before midnight. Patient denies any subjective nausea, vomiting, fever, chills, shortness of breath or chest pain. Review of Systems Const: Denies: chills Resp: Denies: dyspnea or productive cough GI: Denies: abdominal pain, nausea or vomiting : Denies: difficulty voiding Musc: Reports: extremity pain, extremity swelling, joint pain, joint swelling and limited range of motion; Denies: joint redness, joint warmth, muscle weakness or deformity Skin/Breast: Denies: changes in skin color, dry skin, nail changes or change in hair Neuro: Denies: numbness in extremities or weakness in extremities Psych: Denies: anxiety Elliott/Lymph: Denies: easy bruising or easy bleeding Medications/Allergies Allergies Allergy/AdvReac Type Severity Reaction Status Date / Time No Known Allergies Allergy Verified 01/24/25 20:07 Vitals/I&O/Wt Last Vital Signs Temp 98.1 F 04/16/25 09:45 Pulse 77 04/16/25 09:45 Resp 18 04/16/25 09:45 BP 133/88 04/16/25 09:45 Pulse Ox 95 04/16/25 09:45 O2 Del Method Room Air 04/16/25 09:45 Weight last 48 hrs Weight 220 lb Physical Exam Const: COMMON NORMALS: no acute distress, patient oriented x3 and alert HENMT: COMMON NORMALS: normocephalic HEAD & SCALP: normocephalic Eye: COMMON NORMALS: Equal, round and reactive pupils present, EOMs intact bilaterally and conjunctivae normal CONJUNCTIVA: Yes conjunctivae normal PUPIL: Yes Equal, round and reactive pupils present Chest: CHEST: Yes Symmetrical chest wall rise Resp: COMMON NORMALS: normal respiratory effort, No use of accessory muscles and clear to auscultation bilaterally EFFORT & INSPECTION: Yes able to speak in complete sentences and Yes symmetric chest movement AUSCULTATION: clear to auscultation bilaterally Cardio: COMMON NORMALS: regular rate, regular rhythm, No murmurs present (Cardio) and Peripheral pulses 2+ throughout RATE: regular rate RHYTHM: regular rhythm PERIPHERAL PULSES: Peripheral pulses 2+ throughout Extremity: COMMON NORMALS: capillary refill normal, no calf tenderness and no pedal edema (Focal edema right ankle medial and lateral malleolus) GENERAL: Yes edema LEFT LOWER EXTREMITY: Yes ankle joint (Pain at medial and lateral malleolus.) Left ankle: Yes inspection (No abrasion or laceration), Yes palpation (Pain to palpation medial and lateral malleolus.), Yes ROM (Guarded secondary to pain), Yes neurovascular exam (Dorsalis pedis and posterior tibial arteries palpable) and Yes other Neuro: COMMON NORMALS: patient oriented x3 SENSORIUM/ORIENTATION: Yes alert Psych: COMMON NORMALS: mental status grossly normal and cooperative Skin: COMMON NORMALS: no wounds GENERAL SKIN EXAM: no erythema TRAUMA: no lacerations HAIR: general thinning A&P Assessment and plan 1. Syndesmotic disruption of left ankle, initial encounter: 2. Closed trimalleolar fracture of left ankle, initial encounter: 3. Dislocation of left ankle joint, initial encounter: Plan: 49-year-old female fell down 3-4 steps sustained a dislocated left trimalleolar fracture with syndesmotic disruption. Discussed risk and benefits of ORIF patient would like to proceed. I reviewed at length with the patient, the risks, potential complications, benefits, alternatives, expectations, and typical outcomes associated with the surgery. The risks and potential complications were explained in detail, including but not limited to infection, wound dehiscence or soft tissue complications, bleeding and hematoma, chronic edema, neuritis or nerve damage producing numbness or chronic pain, CRPS, failure to relieve pain or worsening pain, thick / painful / unsightly scar, limited motion / stiffness, malposition, delayed union, malunion, or nonunion, fracture, reaction to implants, anesthetic complications, venous thromboembolism, and deformity recurrence. I discussed the notion of no regrets with the patient as it pertains to complications and outcomes. The patient seemed to understand the nature of the proposed care and required convalescence. They asked appropriate questions, answered to their satisfaction. They are aware no guarantees can be made as to a satisfactory outcome and they understand there may be other possible unforeseen complications or outcomes not listed here that will be treated accordingly if they arise. There were no written or implied guarantees given to the patient. They gave informed consent to proceed. Scheduled for ORIF today at [id number] [id number], general anesthetic, left popliteal block, mellissa, mariposa. PDMP PDMP Reviewed: Not Reviewed Coding Level of Care Code Acute Code for [facility] Fwd Diagnoses Syndesmotic disruption of left ankle, initial encounter S93.432A Encounter type: initial encounter Closed trimalleolar fracture of left ankle, initial encounter S82.852A Encounter type: initial encounter Fracture type: closed Dislocation of left ankle joint, initial encounter S93.05XA Encounter type: initial encounter
--- NOTE | 2025-04-16 12:15 | P.ANESASSM_ITS ---
Pre-Anesthetic Assessment Height/Weight: Height 1.6 m Weight 99.79 kg Temp Pulse Resp BP Pulse Ox O2 Del Method 98.3 F 81 16 125/84 95 Room Air 04/16/25 11:56 04/16/25 11:56 04/16/25 11:56 04/16/25 11:56 04/16/25 11:56 04/16/25 11:56 Preop Diagnosis: Left trimalleolar fracture Operation Date: 04/16/25 12:10 Proposed Procedures p ORIF Ankle ORIF Trimalleolar Fracture(Left) - Emile Cary DPM Familial anesthetic complications: None Was Beta Micah taken within 24 hours: N/A Was Clonidine taken within 24 hours: N/A Last intake: Intake Last Liquid Date 04/15/25 Last Liquid Time 20:00 Last Solid Date 04/15/25 Last Solid Time 20:00 Social No alcohol and No tobacco Exam alert, oriented x 3, clear to auscultation bilaterally and regular rate & rhythm Airway Mallampati: Class II Dentition: full Anesthetic Plan ASA status: 2 Anesthesia: General and Regional (specify below) Risk of > 500 ml blood loss (7ml/kg in children): No Medications/Allergies Home Medications ?Medication ?Instructions ?Recorded ?Confirmed ?Last Taken ?Type aspirin 81 mg capsule 81 mg PO DAILY 6 weeks #45 c aps 04/16/25 Unknown Rx hydrocodone 10 mg-acetaminophen 1 tab PO Q6H PRN pain 7 days #28 04/16/25 Unknown Rx 325 mg tablet tabs Allergies Allergy/AdvReac Type Severity Reaction Status Date / Time No Known Allergies Allergy Verified 01/24/25 20:07 Current Medications Generic Name Dose Route Start Last Admin Trade Name Freq PRN Reason Stop Dose Admin Sodium Chloride 1,000 mls @ 30 mls/hr 04/16/25 12:00 04/16/25 11:55 Sodium Chloride 0.9% IV 04/17/25 11:59 30 mls/hr .Q24H CHAKA Administration Anesthesia Procedures Nerve Block Nerve Block 1: Main Anesthesia: general anesthesia Time Out Performed: Yes Consent: requested by attending/covering physician, from patient, from other, risks and benefits reviewed and patient agrees to proceed Nerve block location: popliteal (L) Anesthesia monitors applied: pulse oximetry, EKG, BP cuff and oxygen Nerve block position: supine Anesthetic Used: bupivacaine 0.25% (20 ml) and with decadron Ultrasound used to: recognize landmarks Interscalene/Femoral BLK: 4 stimuplex 21 g needle used for position and inpl ane approach, visualize local anesthetic spread and no vascular puncture identified Injection: neg aspiration of heme Patient Tolerated Procedure: well Complications: none
[2025-04-16] MEDS: ceFAZolin 2,000 mg SDV 2000 MG IVP (12:30)
[2025-04-16] MEDS: BUPivacaine 0.5% INJ 10 mL INJECTION (12:30)
--- NOTE | 2025-04-16 13:21 | P.BOP_ITS ---
Date of Procedure: 10/07/23 Surgeon: Emile Cary DPM Speeder Machine Operator(s): Chirag Procedure(s) performed: Open reduction internal fixation left trimalleolar fracture with syndesmotic repair. Findings of the procedure(s): Syndesmotic disruption and trimalleolar fracture left ankle. Estimated blood loss: 5 mL Specimen(s) removed: No specimens Post-operative diagnosis: Left trimalleolar fracture with syndesmotic disruption.
--- NOTE | 2025-04-16 13:21 | P.OP_ITS ---
Operative Report Date of procedure: April 16, 2025 Pre-op diagnosis: Syndesmotic disruption of left ankle, initial encounter S93.432A Encounter type: initial encounterClosed trimalleolar fracture of left ankle, initial encounter S82.852A Fracture type: closedDislocation of left ankle joint, initial encounter S93.05XA Post-op diagnosis: Syndesmotic disruption of left ankle, initial encounter S93.432A Encounter type: initial encounterClosed trimalleolar fracture of left ankle, initial encounter S82.852A Fracture type: closedDislocation of left ankle joint, initial encounter S93.05XA Post-op findings: Left trimalleolar fracture, unstable and dislocated with syndesmotic disruption. Procedure done: Open reduction internal fixation left trimalleolar fracture. CPT code 54658. Open reduction internal fixation left ankle syndesmosis. CPT code 39298 Implants: Charlton anatomic fibular plate 11 hole with 3.5 mm locking screws Charlton 3.5 mm cannulated screw x 2 partially-threaded at medial malleolus, 50 mm in length Charlton reflex syndesmotic repair soft tissue anchor 2-0 Vicryl 3-0 Vicryl Skin silas 4-0 nylon Specimens removed/disposition: None Pathology: None Surgeon: Emile Cary DPM Skiver Machine Operator: Chirag Estimated blood loss: 5 43 IV fluids: See intraoperative documentation Urine output: None Complications: No complications Findings: trimalleolar fracture grossly unstable with syndesmotic disruption left ankle. Brief History: 49-year-old female fell down 3-4 steps sustained a dislocated left trimalleolar fracture with syndesmotic disruption. Discussed risk and benefits of ORIF patient would like to proceed. I reviewed at length with the patient, the risks, potential complications, benefits, alternatives, expectations, and typical outcomes associated with the surgery. The risks and potential complications were explained in detail, including but not limited to infection, wound dehiscence or soft tissue complications, bleeding and hematoma, chronic edema, neuritis or nerve damage producing numbness or chronic pain, CRPS, failure to relieve pain or worsening pain, thick / painful / unsightly scar, limited motion / stiffness, malposition, delayed union, malunion, or nonunion, fracture, reaction to implants, anesthetic complications, venous thromboembolism, and deformity recurrence. I discussed the notion of no regrets with the patient as it pertains to complications and outcomes. The patient seemed to understand the nature of the proposed care and required convalescence. They asked appropriate questions, answered to their satisfaction. They are aware no guarantees can be made as to a satisfactory outcome and they understand there may be other possible unforeseen complications or outcomes not listed here that will be treated accordingly if they arise. There were no written or implied guarantees given to the patient. They gave informed consent to proceed. Procedure: Under mild sedation the patient was brought to the operating room and remained on the gurney in supine position. A timeout was performed. Anesthesia was then administered by the anesthesia service. Left popliteal block performed preoperatively per anesthesia service. Saphenous block performed by myself with 10 cc of 0.5% Marcaine plain at left anterior medial ankle. Well-padded pneumatic tourniquet applied to the left high calf. The left lower extremity was scrubbed, prepped and draped utilizing standard aseptic technique. Left foot and ankle was then exanguinated with an Esmarch bandage and tourniquet inflated to 250 mmHg. Attention was directed to the left ankle where bony landmarks were palpated both medial and lateral malleolus. At the level of the lateral malleolus extending p roximally a linear longitudinal incision was made through skin with 15 blade with dissection carried down through subcutaneous tissue to the layer of periosteum of the distal fibula utilizing a combination of sharp and blunt technique. Care was taken to retract and preserve neurovascular and tendon structures. All bleeders were ligated and cauterized as necessary. The distal fibula was distracted and curettaged of hematoma followed by saline flush and temporarily fixated after anatomic reduction with [id number] bone reduction clamp followed by fixation with Charlton anatomic fibular plate with 3.5 mm locking screws proximal and distal to the fracture. Fibula was pulled out to length and the rotated without angular deformity appreciated on AP oblique and lateral view with intraoperative C arm and hardware confirmed not to be violating the ankle joint. Cotton hook test yielded positive for syndesmotic disruption with diastases between the tib-fib clear space. Syndesmosis was fix ated utilizing Charlton reflex and soft tissue anchor with excellent reduction and post fixation cotton hook test was solid without diastases. The lateral incision was irrigated with saline solution and closed in a layered fashion with periosteum reapproximated with 2-0 Vicryl, subcutaneous tissue with 3-0 Vicryl and skin with skin silas. Attention was directed to the medial malleolus which was palpated and a small curvilinear incision was performed at the medial ankle through skin with a #15 blade. Dissection carried down to layer periosteum and the medial malleus was reduced manually and confirmed to have excellent anatomic reduction in all 3 planes with intraoperative C arm and AP oblique and lateral views this was then fixated utilizing standard AO technique with 3.5 mm cannulated screws short thread with excellent bony apposition and compression noted not violating the ankle joint with AP oblique and lateral views confirmed with intraoperative C arm. Incision was irrigated with saline solution and closed with 4-0 nylon. Smooth range of motion left ankle without crepitus appreciated intraoperatively. Incisions were then dressed with Xeroform, sterile 4 x 4 gauze, Kerlix, Jerry wrap and a cam boot applied to the left lower extremity with ankle joint in neutral position. Tourniquet was deflated and a prompt hyperemic response noted to the distal digits of the left foot. Patient tolerated the procedure and anesthesia well and was transferred to the PACU with vital signs stable and vascular status intact. Following a period of postoperative monitoring so we discharged home without home care instructions and scheduled follow-up. Initially patient was dispensed crutches to assist with strict nonweightbearing status postoperatively. Patient contacted my office on 04/17/2025 approximate 9:00 AM states that she is very unstable on crutches she already fell 1 time at home and did not sustain any injury. She has poor upper body strength and is also unstable while on hydrocodone. Patient would be better served with a wheelchair to help prevent future harm. Patient will be prescribed a wheelchair and a shower chair for assistance. Rosy Hoffman, is a 46-year-old female who sustained a left trimalleolar fracture on 04/16/2025 as a result of a fall down stairs. On the same date, she underwent open reduction and internal fixation (ORIF) of the left ankle. The patient has been placed on a strict hyk-[id number]-tvcpomv order for a minimum of six weeks to allow for proper bone and soft tissue healing and to prevent hardware failure or reinjury. Medical Necessity for Wheelchair: The patient is currently unable to bear any weight on her left lower extremity, which renders her unable to ambulate safely with a conventional walker or crutches. The patient has already experienced a fall while attempting to use crutches within the first 24 hours of her injury. This incident, combined with her poor reported upper body strength and compromised balance, demonstrates that crutches pose an immediate and significant risk for a second fall, which could lead to further injury and surgical complications. A wheelchair is medically necessary to provide a safe and stable means of mobility to perform essential activities of daily living (ADLs) such as moving from the bed to the bathroom, kitchen, or living areas. The requested wheelchair must include bilateral leg rests to maintain the elevated position of the surgical ankle, which is a critical component of the post-operative care plan to reduce swelling and promote healing. This device is the least restrictive and most appropriate durable medical equipment (DME) to meet her mobility needs during the recovery period. Medical Necessity for Shower Chair: Due to the [id number] restriction and the significant fall risk, the patient is unable to stand independently for hygiene tasks. The shower chair is medically necessary to allow her to safely perform bathing, as standing in a slippery shower or tub without support would be extremely hazardous and could easily result in another fall, causing severe re-injury. The shower chair provides a stable and secure seating option within the shower, mitigating the risk of falls and ensuring she can maintain personal hygiene without requiring caregiver assistance for tasks that can be performed independently with the proper DME.
[2025-04-16] MEDS: fentaNYL 50 mcg/mL INJ 2mL IVP (13:30)
[2025-04-16] MEDS: acetaminophen 1,000 MG/100 ML PIGGYBACK 400 MG IV (14:01)
[2025-04-16] MEDS: HYDROcodone-acetaminophen 10-325 mg Tablet 1 TAB PO (14:44)
== END 2025-04-16 15:24 | disposition home or self-care (01) ==
LOC: ER 11:21 → OR 11:24
PROVIDERS: Emergency Provider Family Medicine; PCP Nurse Practitioner Family; Visit Provider Podiatrist Foot & Ankle Surgery
PROC: (CPT 27822; principal; 2025-04-16 12:00)
DX: S93.432A Sprain of tibiofibular ligament of left ankle, initial encounter (principal); S82.852A Displaced trimalleolar fracture of left lower leg, initial encounter for closed fracture; S93.05XA Dislocation of left ankle joint, initial encounter; W10.8XXA Fall (on) (from) other stairs and steps, initial encounter; Z79.82 Long term (current) use of aspirin
CPT/HCPCS: 27822; 27829; 36416; 73600; 73610; 76000; 82962; C1713; J0131; J0690; J1100; J1885; J2250; J2270; J2371; J2405; J2704; J2795; J3010; J3490; J7030; J9999

== ENCOUNTER 2025-04-20 22:30 | Emergency (ER) | payer OTHER, MEDICAID, SELFPAY ==
--- OUTSIDE RECORDS SUMMARY | 2024-01-11 09:30 | XMS_ITS ---
Author Organization [facility] Address [address] [place] [address] Care Team Providers Care Information Technology Account Manager Name Role Phone Litzy Obrien Unavailable [phone] REASON FOR VISIT 6m Encounters Encounter Location Date Provider Diagnosis [facility] [address] [facility] [address] [place] [address] 01/11/2024 Litzy Obrien Plan Of Treatment No Information Progress Notes * Rosy PENNYDOB: [birth year] (49 yo F)Acc No.[id number]:01/11/2024 Progress Notes Patient: Rosy GILES Provider: Rae Obrien MD :1975 A ge:48 Y S ex:Female Date:01/11/2024 Address:[address] [place], [place] [id number] Subjective: * Chief Complaints: * 1 . [...] Date: 01/11/2024 Generated for Deloresi ng/Faradhag/eTransmitting on: 0 04/20/2025 10:45 PM CDT
--- OUTSIDE RECORDS SUMMARY | 2025-04-20 22:45 | XMS_ITS | Clinical Summary ---
Author Organization [facility] Address [address] [place] [address] Phone Care Team Providers Care Utilities Ground Worker Name Role Phone Unavailable Primary Care Provider [...] Description 02/12/2025 1:30 PM CDT Office Visit [facility] [address] [place], [place] [phone] Dominic Ochoa MD Iron deficiency anemia, unspecified iron deficiency anemia type (Primary Dx) Discharge Disposition: Home 02/12/2025 Travel 02/04/2025 Orders Only [facility] [address] [place] [phone] Elisa Cha RN Iron deficiency anemia, unspecified iron deficiency anemia type (Primary Dx) from Last 3 Months Immunizations Immunization Administration [...] PM CDT 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 Dominic Ochoa MD LAB BLOOD ORDERABLES Final Result Performing Organization Address City/State/[facility] Co de Phone Number [facility] [address] [place] [address], [facility] [email or web address]] [phone] * (ABNORMAL) CBC with differential (02/12/2025 2:19 PM CDT) WBC 5.9 5.0 - 10.0 K/uL 02/12/2025 2:35 PM CDT [facility] RBC 3.85(L) 4.10 - 5.40 M/uL 02/12/2025 2:35 PM CDT [facility] Hemoglobin 12.6 12.0 - 16.0 g/dL 02/12/2025 2:35 PM CDT [facility] Hematocrit 37.3 37.0 - 47.0 % 02/12/2025 2:35 PM CDT [facility] MCV 96.9 80.0 - 97.0 fL 02/12/2025 2:35 PM CDT [facility] MCH 32.7(H) 27.0 - 32.0 pg 02/12/2025 2:35 PM CDT [facility] MCHC 33.8 32.0 - 36.0 g/dL 02/12/2025 2:35 PM CDT [facility] RDW CV 13.3 11.5 - 14.5 % 02/12/2025 2:35 PM CDT [facility] Platelet 300 150 - 500 K/uL 02/12/2025 2:35 PM CDT [facility] MPV 10 7 - 10 fL 02/12/2025 2:35 PM CDT [facility] Absolute Neutrophil 3.6 2.5 - 7.5 K/uL 02/12/2025 2:35 PM CDT [facility] Absolute Lymphocyte 2.0 1.0 - 4.0 K/uL 02/12/2025 2:35 PM CDT [facility] Absolute Monocyte 0.23 0.05 - 0.60 K/uL 02/12/2025 2:35 PM CDT [facility] Absolute Eosinophil 0.08 0.05 - 0.50 K/uL 02/12/2025 2:35 PM CDT [facility] Absolute Basophil 0.02 0.00 - 0.10 K/uL 02/12/2025 2:35 PM CDT [facility] Absolute Immature Granulocytes 0.02(H) <=0.00 K/uL 02/12/2025 2:35 PM CDT [facility] Neutrophil percent 60.5 50.0 - 75.0 % 02/12/2025 2:35 PM CDT [facility] Lymphocyte percent 33.6 20.0 - 40.0 % 02/12/2025 2:35 PM CDT [facility] Monocyte percent 3.9 0.0 - 6.0 % 02/12/2025 2:35 PM CDT [facility] Eosinophil percent 1.4 0.0 - 6.0 % 02/12/2025 2:35 PM CDT [facility] Basophils Percent, Automated 0.3 0.0 - 1.0 % 02/12/2025 2:35 PM CDT [facility] Immature Granulocytes percent 0.30(H) % 02/12/2025 2:35 PM CDT [facility] Blood Venipuncture / Unknown 02/12/2025 2:19 PM CDT 02/12/2025 2:22 PM CDT Narrative [facility] - 02/12/2025 2:35 PM CDT SLIDE REVIEW TO FOLLOW. us Dominic Ochoa MD LAB BLOOD ORDERABLES Final Result [facility] [address] [place] [address], [facility] [[email or web address]] [phone] from Last 3 Months Insurance [employer]
--- OUTSIDE RECORDS SUMMARY | 2025-04-20 22:46 | XMS_ITS | Patient Health Record ---
Author Organization [facility] Address [address] [place] [address] Care Team Providers Care Lace Cutter Name Role Phone Benjy Juarez DO Primary Care Provider Unavailabl e Arthur Marshall Unavailable [phone] ARTHUR MARSHALL Unavailable Unavailable Allergies No Known [...] Unknown 04/16/2021 A dministered Influenza (whole), CPT 03938 Inactive Unknown 08/08/2017 Administered Influenza (whole), CPT 29076 Inactive Unknown 08/08/2018 Administered Social History Tobacco [...] Status Risk Notes Problem Reduced visual acuity ([id number]) Decreased visual acuity (H54.7) Active confirmed Plan Of Treatment Pending Test Test Name Order Date MRI Lumbar Spine w/o [id number] 10/29/19 22 Insurance Providers Payer Name Payer Address Payer Phone Subscriber Number Group Number Insured Name Patient Relationship to Insured Coverage Start Date Coverage End Date [address] [facility] [place] [address] [id number] Rosy Hoffman Self - patient is the insured 2 [employer] - Work Comp [id number] [facility] [place] [address] [id number] Yasmin Rosy Self - patient is [...] Status :: Active Surgical History Surgery Date(Month/Year) c section x 4 gallbladder 2010 hysterectomy 2020 hands and elbows 2020 Hospitalization History Reason Date(Month/Year) see surgical hx
--- OUTSIDE RECORDS SUMMARY | 2025-04-20 22:46 | XMS_ITS | Patient Health Record ---
Author Organization [facility] Address [address] [place] [address] Care Team Providers Care Vehicle Window Tinter Name Role Phone Litzy Obrien Unavailable [phone] Allergies No Known Allergies Reason For Referral [...] Status W/U Status Risk Notes Problem Fibromyalgia (333459549) Fibromyalgia syndrome (M79.7) Active confirmed Encounters Encounter Location Date Provider Diagnosis [facility] [address] [facility] [address] [place] [address] 04/30/2024 Litzy Obrien Fibromyalgia syndrom e M79.7 [facility] [address] [facility] [address] [place] [address] 05/02/2024 Litzy Obrien [facility] [address] [facility] [address] [place] [address] 10/01/2024 Litzy Obrien Assessments Encounter Date Diagnosis (ICD Code) Assessment Notes Treatment Notes Treatment Clinical Notes Section Notes 04/30/2024 Fibromyalgia syndrome (ICD-10 - M79.7) Plan Of Treatment No Information Insurance Providers Payer Name Payer Address Payer Phone Subscriber Number Group Number Insured Name Patient Relationship to Insured Coverage Start Date Coverage End Date [facility] [address] [place], [place] [phone] [id number] Rosy Hoffman Self - patient is the insured 3 Medical (General) History Medical History History ICD Code gall bladder removed partial hysterectomy hand surgery elbow surgery
[2025-04-20 23:05] VITALS: BP 126/86; PULSE 107; RESP 20; TEMP 37.1; O2SAT 97; BMI 38.9
--- NOTE | 2025-04-20 23:19 | XRR_ITS ---
PROCEDURE INFORMATION: Exam: XR Chest Exam date and time: 04/20/2025 11:45 PM Age: 49 years old Clinical indication: Fever; Additional info: Post op fever TECHNIQUE: Imaging protocol: Radiologic exam of the chest. Views: 1 view. COMPARISON: CR XR chest 1V portable [id number] 01/24/2025 8:26 PM FINDINGS: Lungs: Unremarkable. No consolidation. Pleural spaces: Unremarkable. No pleural effusion. No pneumothorax. Heart/Mediastinum: Unremarkable. No cardiomegaly. Bones/joints: Unremarkable. XR/XR chest 1V portable [id number] IMPRESSION: No acute findings.
--- NOTE | 2025-04-20 23:20 | W.ED.FEVER ---
HPI - Fever General: Chief Complaint: Extremity Injury, Lower Stated Complaint: post op 100.0 Fever chills Time Seen by Provider: 04/20/25 23:06 Source: patient Mode of arrival: wheelchair Limitations: no limitations History of Present Illness: Patient is a 49-year-old female presents to ED today with a complaint of a fever. She states she is 4 days postop surgical repair for left trimalleolar ankle fracture by Dr. Cary. She feels like she is improving well. She states today she began feeling hot and thus took her temperature and noted it was 100.0. Patient remembers she was told that if she runs a fever postop she needs to come to the emergency department. She has not noticed any increased pain to her surgical site. She is not having any shortness of breath or cough or chest pain. No UTI-like symptoms. No known recent sick contacts. MD elicited complaint: fever Onset (ago): hour(s) Context: recent hospitalization Exacerbating factors: nothing Relieving factors: nothing Associated symptoms: Deny abdominal pain, flank pain, chills, chest pain, diarrhea, dysuria, headache(s) or vomiting Treatments prior to arrival fever: none Related Data Previous Rx's ?Medication ?Instructions ?Recorded aspirin 81 mg capsule 81 mg PO DAILY 6 weeks #45 caps 04/16/25 hydrocodone 10 mg-acetaminophen 1 tab PO Q6H PRN pain 7 days #28 04/16/25 325 mg tablet tabs Wheel Chair with Bilateral Leg #1 ea 04/17/25 Rests and Shower Chair Allergies Allergy/AdvReac Type Severity Reaction Status Date / Time No Known Allergies Allergy Verified 01/24/25 20:07 Review of Systems Const: Reports: fever(s) (100.0); Denies: chills, body aches, change in appetite, change in weight, fatigue or malaise Card: Denies: chest pain, lightheadedness, syncope or pre-syncope Resp: Denies: dyspnea, productive cough, non-productive cough or chest congestion GI: Denies: abdominal pain, vomiting, diarrhea or change in bowel habits : Denies: flank pain, dysuria or hematuria Musc: Reports: joint pain (feels like this is doing well post op); Denies: neck pain, back pain or joint redness Skin/Breast: Denies: rash or erythema Neuro: Denies: headache(s), numbness in extremities, weakness in extremities or sensory changes Physical Exam Const: COMMON NORMALS: no acute distress, average body habitus, patient oriented x3, no limitations, healthy appearing, alert and well nourished GENERAL APPEARANCE: cooperative ORIENTATION/CONSCIOUSNESS: Yes awake, Yes oriented to person, Yes oriented to place and Yes oriented to time HENMT: COMMON NORMALS: normocephalic and atraumatic HEAD & SCALP: normal to inspection, normocephalic and atraumatic Resp: COMMON NORMALS: normal respiratory effort and clear to auscultation bilaterally AUSCULTATION: clear to auscultation bilaterally Cardio: COMMON NORMALS: regular rate and regular rhythm RATE: regular rate RHYTHM: regular rhythm GI: COMMON NORMALS: Normal to inspection, nondistended, normoactive bowel sounds present, Soft to palpation and non-tender PALPATION: Yes Soft to palpation Extremity: GENERAL: Yes normal exam except as noted OTHER: L ankle surgical site was undressed to evaluate for infection-incisions all appear clean/well dressed; there is no erythema, warmth, streaking, discharge, odor, or evidence of infection Neuro: COMMON NORMALS: patient oriented x3, moves all extremities, no focal motor deficits and no sensory deficits noted SENSORIUM/ORIENTATION: Yes alert, Yes oriented to person, Yes oriented to place and Yes oriented to time Skin: COMMON NORMALS: no rashes or lesions noted GENERAL SKIN EXAM: no rashes or lesions noted Course Vital Signs: Vital signs: Vital Signs Temperature 98.7 F 04/20/25 23:05 Pulse Rate 107 H 04/20/25 23:05 Respiratory Rate 20 H 04/20/25 23:05 Blood Pressure 126/86 04/20/25 23:05 Pulse Oximetry 97 04/20/25 23:05 MDM - Fever Medical Decision Making Patient is a 49-year-old female here for days postop bimalleolar fracture repaired by Dr. Cary with concerns of a low-grade temperature of 100.0 at home. She states she was told to come to the emergency department with any postop fever. She states she does not overly feel ill. She has not noticed any worsening pain to her surgical site. She has continued in her surgical dressing and CAM boot. She is not complaining of chest pain, shortness of breath, difficulty breathing. No UTI-like symptoms or flank pain. Blood work here showing a normal white count. UA is clear. CXR is unremarkable. COVID/flu/RSV negative. Her surgical site appears clean and non-infected. Patient will be allowed discharge with recommendations to follow-up with Dr. Cary as scheduled on Tuesday. Medical Records I reviewed the patient's medical records. Lab Data I reviewed the patient's lab results. 04/20/25 23:24 04/20/25 23:24 Laboratory Results WBC 7.29 10^3/uL (3.29-11.43) 04/20/25 23: RBC 4.11 10^6/uL (3.85-5.65) 04/20/25 23: Hgb 13.30 g/dL (11.27-16.99) 04/20/25 23: Hct 39.6 % (36-47) 04/20/25 23: MCV 96.4 fl (85-98) 04/20/25 23: MCH 32.4 pg (27-33) 04/20/25 23: MCHC 33.6 g/dL (30-55) 04/20/25 23: RDW 13.3 % (12.1-15.1) 04/20/25 23: Plt Count 313 10^3/cmm (157-399) 04/20/25 23:24 MPV 10.2 fL (7.4-10.4) 04/20/25 23: Neut % (Auto) 60.3 % 04/20/25 23: Lymph % (Auto) 31.0 % 04/20/25 23: [place] % (Auto) 4.7 % 04/20/25 23:24 Eos % (Auto) 2.6 % 04/20/25 23: Baso % (Auto) 0.7 % 04/20/25: Neut # (Auto) 4.40 10^3/uL (1.8-7.7) 04/20/25 23: Lymph # (Auto) 2.3 10^3/uL (0.8-4.8) 04/20/25: [place] # (Auto) 0.3 10^3/uL (0.2-0.9) 04/20/25 23:24 Eos # (Auto) 0.2 10^3/uL (0.0-0.8) 04/20/25 23:24 Baso # (Auto) 0.1 10^3/uL (0.0-0.1) 04/20/25 23:24 Nucleated RBC % (auto) 0 % 04/20/25 23:24 Nucleated RBCs # 0.0 /100WBC 04/20/25 23:24 Sodium 138 mmol/L (136-145) 04/20/25 23:24 Potassium 4.1 mmol/L (3.5-5.1) 04/20/25 23:24 Chloride 99 mmol/L (98-107) 04/20/25 23:24 Carbon Dioxide 28 mmol/L (22-29) 04/20/25 23:24 Anion Gap 15.1 (5-19) 04/20/25 23:24 BUN 9 mg/dL (6-20) 04/20/25 23:24 Creatinine 0.9 mg/dL (0.5-0.9) 04/20/25 23:24 Calculated Osmolality 289 mOsm/kg (285-295) 04/20/25 23:24 Calcium 9.9 mg/dL (8.5-10.5) 04/20/25 23:24 Total Bilirubin 0.8 mg/dL (0.15-1.2) 04/20/25 23:24 AST 27 U/L (0-32) 04/20/25 23:24 ALT 20 U/L (0-33) 04/20/25 23:24 Total Protein 8.2 g/dL (6.6-8.7) 04/20/25 23:24 Albumin 4.2 g/dL (3.5-5.2) 04/20/25 23:24 Globulin 4.0 g/dL (1.3-4.6) 04/20/25 23:24 Urine Color Yellow (Yellow) 04/20/25 23:52 Urine Appearance Clear (CLEAR) 04/20/25 23:52 Urine pH 6.5 (5-7) 04/20/25 23:52 Ur Specific [place] 1.009 (1.005-1.030) 04/20/25 23:52 Urine Protein Negative (Negative) 04/20/25 23:52 Urine Glucose (UA) Negative (Normal) 04/20/25 23:52 Urine Ketones Negative (Negative) 04/20/25 23:52 Urine Blood Negative (Negative) 04/20/25 23:52 Urine Nitrate Negative (Negative) 04/20/25 23:52 Urine Bilirubin Negative (Negative) 04/20/25 23:52 Urine Urobilinogen 1.0 mg/dL (Negative) 04/20/25 23:52 Ur Leukocyte Esterase Negative (Negative) 04/20/25 23:52 Urine RBC 0-2 /hpf (0-2) 04/20/25 23:52 Urine WBC 0-5 /hpf (0-5) 04/20/25 23:52 Ur Squamous Epith Cells 0-5 /hpf (0-5) 04/20/25 23:52 Amorphous Sediment Not Reportable 04/20/25 23:52 Urine Bacteria None seen /hpf (NONE) 04/20/25 23:52 Hyaline Casts 0-4 /lpf H 04/20/25 23:52 Influenza A (PCR) Negative (Negative) 04/20/25 23:24 Influenza Type B (PCR) Negative (Negative) 04/20/25 23:24 RSV (PCR) Negative (Negative) 04/20/25 23:24 SARS-CoV-2 (PCR) Negative (Negative) 04/20/25 23:24 No radiology studies performed this visit Discharge Plan Discharge Patient Disposition: Home Clinical Impression: Postsurgical fever Condition: Stable Prescriptions: No Action (DME) Wheel Chair with Bilateral Leg Rests and Shower Chair See Rx Instructions .Route .MEDSUPPLY Qty: 1 0RF Rx Instructions: As directed HOME: Length of need 90+ days aspirin 81 mg capsule 81 mg PO DAILY 42 Days Qty: 45 0RF hydrocodone-acetaminophen 10-325 mg tablet 1 tab PO Q6H PRN (Reason: pain) 7 Days Qty: 28 0RF Discharge Orders: Discharge ED (Routine); Ordered 04/21/25 Ordered By: Tabatha Jane Referrals: Yanci Pappas APN [Primary Care Provider, Unknown] Patient Instructions: Patient Portal & [place] Instructions Activity Restrictions/Additional Instructions: As we discussed, your surgical site appears very well. Please continue plan to follow-up with Dr. Cary as scheduled on Tuesday. Monitor for worsening pain, leg swelling, wound drainage/odor. Your chest x-ray was unremarkable. Urine was clear without evidence for infection. Blood work showing a normal white count. COVID/flu/RSV did return and were negative. You may return to the emergency department at anytime for any further concerns that may arise. Print Language: Pashto Coding Level of Care Code ED Commissary Clerk for Beth Pratt
[2025-04-20 23:32] LABS: Hematocrit 39.6 % (36-47); Hemoglobin 13.30 g/dL (11.27-16.99); Mean Corpuscular HGB Conc 33.6 g/dL (30-55); Mean Corpuscular Hemoglobin 32.4 pg (27-33); Mean Corpuscular Volume 96.4 fl (85-98); Nucleated Red Blood Cells % 0 %; Platelet Count 313 10^3/cmm (157-399); Red Blood Count 4.11 10^6/uL (3.85-5.65); White Blood Count 7.29 10^3/uL (3.29-11.43)
[2025-04-21 00:06] LABS: Glucose Urine UA Negative (Normal); Nitrate Urine Negative (Negative); Specific Gravity, Urine 1.009 (1.005-1.030)
[2025-04-21 00:10] LABS: Respiratory Syncytial Virus Ce NEGATIVE (Negative); SARS-CoV-2 PCR NEGATIVE (Negative)
[2025-04-21 00:11] LABS: Add Urine Microscopic? YES
[2025-04-21 00:25] LABS: Alanine Aminotransferase 20 U/L (0-33); Albumin Level 4.2 g/dL (3.5-5.2); Alkaline Phosphatase 122 U/L (35-105); Anion Gap 15.1 (5-19); Aspartate Amino Transferase 27 U/L (0-32); Blood Urea Nitrogen 9 mg/dL (6-20); Calcium 9.9 mg/dL (8.5-10.5); Carbon Dioxide 28 mmol/L (22-29); Chloride 99 mmol/L (98-107); Creatinine Clr Calc Pharmacy 86.1117; Globulin 4.0 g/dL (1.3-4.6); Glucose 179 mg/dL (65-115); Osmolality Calculated 289 mOsm/kg (285-295); Potassium 4.1 mmol/L (3.5-5.1); Sodium 138 mmol/L (136-145); Total Protein 8.2 g/dL (6.6-8.7)
[2025-04-21 00:37] VITALS: BP 152/88; PULSE 93; O2SAT 97
== END 2025-04-21 00:39 | disposition home or self-care (01) ==
PROVIDERS: Emergency Provider Physician Assistant; PCP Nurse Practitioner Family
DX: R50.82 Postprocedural fever (principal); Z11.52 Encounter for screening for COVID-19; Z79.82 Long term (current) use of aspirin
CPT/HCPCS: 36415; 71045; 80053; 81001; 85025; 87637; 99284

== ENCOUNTER → 2025-04-25 14:15 | Outpatient (BNVA) | payer OTHER, MEDICAID, SELFPAY | PROVIDERS: PCP Nurse Practitioner Family; Visit Provider Podiatrist Foot & Ankle Surgery | DX: Z98.890 Other specified postprocedural states (principal); Z87.81 Personal history of (healed) traumatic fracture | CPT/HCPCS: 73610 ==

== ENCOUNTER → 2025-05-01 11:00 | Outpatient (BNVA) | payer MEDICAID, SELFPAY | PROVIDERS: PCP Nurse Practitioner Family; Visit Provider Podiatrist Foot & Ankle Surgery | DX: Z98.890 Other specified postprocedural states (principal); S82.52XA Displaced fracture of medial malleolus of left tibia, initial encounter for closed fracture; W01.0XXA Fall on same level from slipping, tripping and stumbling without subsequent striking against object, initial encounter | CPT/HCPCS: 73610 ==

== ENCOUNTER 2025-05-03 09:49 | Day surgery (SDC) | payer MEDICAID, SELFPAY ==
[2025-05-03] VITALS (21 sets, daily range): BP systolic 114–161; BP diastolic 70–123; PULSE 72–99; RESP 10–20; TEMP 36.3–36.7; O2SAT 93–100; BMI 38.9
--- NOTE | 2025-05-03 10:02 | P.OP_ITS ---
Operative Report Date of procedure: May 03, 2025 Pre-op diagnosis: Fall, initial encounter W19.XXXA Encounter type: initial encounterClosed displaced fracture of medial malleolus of left tibia, initial encounter S82.52XA Encounter type: initial encounter Fracture alignment: displaced Post-op diagnosis: Fall, initial encounter W19.XXXA Encounter type: initial encounterClosed displaced fracture of medial malleolus of left tibia, initial encounter S82.52XA Encounter type: initial encounter Fracture alignment: displaced Procedure done: Left ankle hardware removal. CPT code 40096 Left medial malleolus fracture ORIF. CPT code 88766 Implants: [employer] medial malleoli are hook plate that is anatomic with 3.5 mm locking screws, 2-0 Vicryl, 4-0 Vicryl, skin silas Specimens removed/disposition: No specimens removed Pathology: No pathology specimen sent Surgeon: Emile Cary DPM Medical Collections: Rico Estimated blood loss: 2 mL See intraoperative documentation IV fluids: See intraoperative documentation Urine output: No urine output Complications: No complications encountered Findings: Anatomic reduction of medial malleolus, no hardware failure with screw removal. Brief History: 50 year old female patient presenting to clinic for post operative follow up after an Open reduction internal fixation left trimalleolar fracture, and an Open reduction internal fixation left ankle syndesmosis. DOS 04/16/25. Patient reports that she recent fell. Unfortunately patient tripped and fell in her yard at home April 29, 2025 and put full weight with twisting motion on her injured left ankle felt an uptick in pain at the medial side is concerned that she may have caused damage to the surgical site. Denies any other concomitant injuries. Procedure: Under mild sedation the patient was brought to the operating room and remained on the gurney in supine position. A timeout was performed. Anesthesia was then administered by the anesthesia service. Of note patient received a popliteal block and adductor block per anesthesia preoperatively. Well-padded pneumatic tourniquet applied to the left high calf. The left lower extremity was then scrubbed, prepped and draped utilizing normal aseptic technique. Left foot and ankle were exanguinated with an Esmarch bandage and tourniquet inflated to 250 mmHg. Tissue was directed to the medial aspect of the left ankle where previous cicatrix was identified directly over previous incision a #15 blade was utilized to perform a new incision extending both proximally and distal approximately 4 cm in length through skin with a #15 blade with dissection carried down through subcutaneous tissue to the layer periosteum and hardware, care was taken to retract and preserve neurovascular and tendinous structures. All bleeders were ligated and cauterized as necessary. Saphenous nerve and saphenous vein anteriorly retracted with self-retaining wheat Ocean retractor. The incision was irrigated with saline solution. 2 previous screws noted to have failed due to new injury were explanted without fragmentation or failure and these were passed from the operative field these were 4.0 mm cannulated partially-threaded screws provided by [employer]. Attention was directed to the fracture fragment which was curettaged of hematoma at both surfaces, fracture was reduced manually and temporarily fixated with a K wire. AP oblique and lateral views with intraoperative mini C arm confirmed anatomic reduction of the fracture fragment with congruent ankle mortise. Next the medial malleolus was fixated utilizing s tandavasiliy AO technique with a [employer] anatomic medial malleolus hook plate with excellent bony apposition and compression noted fixated with 3.5 mm locking screws. Intraoperative C arm in the AP, oblique and lateral view confirmed that the screw fixation was excellent in all 3 planes and did not violate the ankle mortise. Intraoperative range of motion of the left ankle was smooth without crepitus with approximately 8 degrees of dorsiflexion and 35 degrees of plantarflexion. The incision was irrigated with copious amounts of sterile send solution followed by a layered closure with 2-0 Vicryl at periosteum, 4-0 Vicryl subcutaneous tissue and and skin reapproximated with skin silas. The incision was dressed with Xeroform, sterile gauze, Kerlix and Jerry wrap followed by application of a cam boot. Tourniquet was then deflated and a prompt hyperemic response is noted to the distal digits of the left foot. Patient tolerated the anesthesia and procedure well without complications and was transferred to the PACU with vital signs stable and vascular status intact. Following a period of postoperative monitoring stable discharged home without home care instructions and scheduled follow-up. Was advised to be nonweightbearing and elevate left foot while resting and remain immobilized at all times with cam boot.
--- NOTE | 2025-05-03 10:29 | P.ANESASSM_ITS ---
Pre-Anesthetic Assessment Height/Weight: Height 1.6 m Preop Diagnosis: Left ankle fracture Operation Date: 05/03/25 11:20 Proposed Procedures p Hardware Removal Ankle/Foot Ankle Hardware Removal(Left) - Emile Cary DPM s ORIF Ankle ORIF Medial Malleolus(Left) - Emile Cary DPM Familial anesthetic complications: None Was Beta Micah taken within 24 hours: N/A Was Clonidine taken within 24 hours: N/A Last intake: > 8 hrs Social No alcohol and No tobacco Exam alert, oriented x 3, clear to auscultation bilaterally and regular rate & rhythm Airway Mallampati: Class IV Dentition: chipped and loose Metabolic Hyperlipidemia, Morbid Obesity and Thyroid Disease Anesthetic Plan ASA status: 2 Anesthesia: General and Regional (specify below) Risk of > 500 ml blood loss (7ml/kg in children): No Medications/Allergies Home Medications ?Medication ?Instructions ?Recorded ?Confirmed ?Last Taken ?Type aspirin 81 mg capsule 81 mg PO DAILY 6 weeks #45 c aps 04/16/25 05/02/25 05/02/25 17:00 Rx Wheel Chair with Bilateral Leg #1 ea 04/17/25 05/01/25 Unknown Rx Rests and Shower Chair cephalexin 500 mg capsule 500 mg PO TID 7 days #21 cap s 04/25/25 05/02/25 05/02/25 17:00 Rx duloxetine 60 mg capsule,delayed 60 mg PO DAILY Olga carter, to make 04/25/25 05/02/25 05/02/25 17:00 History release pregablin hydrocodone 7.5 mg-acetaminophen 1 tab PO Q8H pain 7 d ays #21 tabs 04/25/25 05/02/25 05/01/25 Rx 325 mg tablet 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 04/25/25 05/02/25 05/03/25 06:00 History loratadine 10 mg tablet 10 mg PO DAILY Allergies 09/1805/02/25 05/02/25 17:00 History pregabalin 150 mg capsule 150 mg PO TID Fibromyalgia 1 05/02/25 05/03/25 06:00 History tizanidine 2 mg tablet 4 mg PO BID Pain in lower ba ck 04/25/25 05/02/25 05/01/25 History rosuvastatin 20 mg tablet 20 mg PO DAILY 05/02/25 100 04/1805/02/25 17:00 History Allergies Allergy/AdvReac Type Severity Reaction Status Date / Time No Known Allergies Allergy Verified 05/02/25 12:01 [facility] Anesthesia Social History Smoking and tobacco/nicotine status: current every day tobacco/nicotine user
--- NOTE | 2025-05-03 11:05 | PC.NURSE ---
BOBTAIL DRIVER Marshall Menendez and BOBTAIL DRIVER student administered 75mg/56.75 mls of Ropvicaine into left knee compartments to aid on a block for surgery. Pt tolerated well.
--- NOTE | 2025-05-03 12:01 | W.PM.OPSUD ---
Surgery/Procedure H&P Update DATE OF PROCEDURE: May 03, 2025 DATE H&P PERFORMED: 05/01/25 H&P UPDATE INFORMATION: I have reviewed H&P completed within last 30 days, I have examined patient prior to procedure, No changes to prior documentation, H&P is in [facility] EMR on date indicated and Risks and benefits of the procedure reviewed PREOP DIAGNOSIS: Left ankle fracture PLANNED PROCEDURE: Operation Date: 05/03/25 11:20 Proposed Procedures p Hardware Removal Ankle/Foot Ankle Hardware Removal(Left) - Emile Cary DPM s ORIF Ankle ORIF Medial Malleolus(Left) - Emile Cary DPM
[2025-05-03] MEDS: ceFAZolin 2,000 mg SDV 2000 MG IVP (12:03)
[2025-05-03] MEDS: tranexamic acid 1,000 mg/10mL SDV 1000 MG IV (12:15)
[2025-05-03] MEDS: fentaNYL 50 mcg/mL INJ 2mL IVP ×2 (12:59→13:09)
--- NOTE | 2025-05-03 13:22 | PC.NURSE ---
Mani QUINTERO contacted about BP he came and gave her some meds in IV.
[2025-05-03] MEDS: HYDROmorphone 1 mg/mL INJ 1ml 0.5 MG IVP ×2 (13:27→13:39)
[2025-05-03] MEDS: HYDROcodone-acetaminophen 10-325 mg Tablet 1 TAB PO (14:03)
--- NOTE | 2025-05-03 14:25 | ANE.PACU2 ---
Inpatient post-anesthesia follow up: Airway intact: Yes Vital signs: Temperature 98.0 F Pulse Rate 84 Respiratory Rate 18 Blood Pressure 119/93 Pulse Oximetry 93 Oxygen Delivery Me thod Room Air Oxygen Flow Rate 2 Fraction of Inspir ed Oxygen Hydration adequate: Yes Nausea and vomiting: No Pain level: 1 Mental status: Baseline
== END 2025-05-03 14:26 | disposition home or self-care (01) ==
PROVIDERS: PCP Nurse Practitioner Family; Visit Provider Podiatrist Foot & Ankle Surgery
PROC: (CPT 27766; principal; 2025-05-03 11:10)
PROC: (CPT 27766; 2025-05-03 11:10)
DX: S82.52XA Displaced fracture of medial malleolus of left tibia, initial encounter for closed fracture (principal); W19.XXXA Unspecified fall, initial encounter; E78.5 Hyperlipidemia, unspecified; E66.01 Morbid (severe) obesity due to excess calories; Z68.39 Body mass index [BMI] 39.0-39.9, adult; E07.9 Disorder of thyroid, unspecified; Z79.82 Long term (current) use of aspirin; Z79.891 Long term (current) use of opiate analgesic; F17.200 Nicotine dependence, unspecified, uncomplicated
CPT/HCPCS: 27766; 20680; 76000; C1713; J0690; J1100; J1171; J2250; J2371; J2405; J2795; J3010; J3490; J7030; J9999

== ENCOUNTER → 2025-05-16 13:05 | Outpatient (BNVA) | payer MEDICAID, SELFPAY | PROVIDERS: PCP Nurse Practitioner Family; Visit Provider Podiatrist Foot & Ankle Surgery | DX: S82.52XA Displaced fracture of medial malleolus of left tibia, initial encounter for closed fracture (principal); Z98.890 Other specified postprocedural states; W19.XXXA Unspecified fall, initial encounter | CPT/HCPCS: 73610 ==

== ENCOUNTER → 2025-06-13 13:06 | Outpatient (BNVA) | payer MEDICAID, SELFPAY | PROVIDERS: PCP Nurse Practitioner Family; Visit Provider Podiatrist Foot & Ankle Surgery | DX: S82.52XA Displaced fracture of medial malleolus of left tibia, initial encounter for closed fracture (principal); W19.XXXA Unspecified fall, initial encounter; Z98.890 Other specified postprocedural states | CPT/HCPCS: 73610 ==

== ENCOUNTER → 2025-07-16 13:35 | Outpatient (BNVA) | payer MEDICAID, SELFPAY | PROVIDERS: PCP Family Medicine; Visit Provider Podiatrist Foot & Ankle Surgery | DX: S82.52XD Displaced fracture of medial malleolus of left tibia, subsequent encounter for closed fracture with routine healing (principal); X58.XXXD Exposure to other specified factors, subsequent encounter; Z98.890 Other specified postprocedural states | CPT/HCPCS: 73610 ==